=== PATIENT | female | born 1990 | race Caucasian/White ===

== ENCOUNTER 2017-04-03 19:04 | Emergency (ER) | payer SELFPAY ==
[~2017-04-03] VITALS: Ht 157.5 cm; Wt 62.6 kg
[2017-04-03] MEDS ORDERED: ONDANSETRON PF 4 MG/2 ML VIAL. ONE (19:44)
[2017-04-03] MEDS ORDERED: IV NORMAL SALINE 1,000ML 1,000 ML ONE (19:44)
[2017-04-03] MEDS ORDERED: IV NORMAL SALINE 1,000ML 1,000 ML IV ONE (19:45)
[2017-04-03] MEDS ORDERED: ONDANSETRON PF 4 MG/2 ML VIAL. IV ONE (19:45)
[2017-04-03 20:10] LABS: BASO % 0 % (0-3); EOS # 0.1 x10^3/uL (0.0-0.7); EOS % 1 % (0-3); HEMATOCRIT 37.1 % (36.0-47.0); HEMOGLOBIN 12.8 g/dL (12.0-15.5); LYMPH # 2.6 x10^3/uL (1.0-4.8); LYMPH % 31 % (24-48); MEAN CORPUSCULAR HEMOGLOBIN 34 pg (25-35); MEAN CORPUSCULAR HGB CONC 35 g/dL (31-37); MEAN CORPUSCULAR VOLUME 98 fL (79-100); MONO # 1.3 x10^3/uL (0.0-1.1); MONO % 15 % (0-9); NEUT # 4.3 x10^3uL (1.8-7.7); NEUT % 52 % (31-73); PLATELET COUNT 235 x10^3/uL (140-400); RED BLOOD COUNT 3.78 x10^6/uL (3.50-5.40); RED CELL DISTRIBUTION WIDTH 12.9 % (11.5-14.5); WHITE BLOOD COUNT 8.3 x10^3/uL (4.0-11.0)
[2017-04-03 20:19] LABS: ALBUMIN 3.8 g/dL (3.4-5.0); ALBUMIN/GLOBULIN RATIO 1.1 (1.0-1.7); CALCIUM 8.8 mg/dL (8.5-10.1); CREATININE 0.8 mg/dL (0.6-1.0); GFR 87.4; POTASSIUM 3.6 mmol/L (3.5-5.1); TOTAL BILIRUBIN 0.2 mg/dL (0.2-1.0); TOTAL PROTEIN 7.4 g/dL (6.4-8.2)
[2017-04-03 20:20] LABS: COLOR,URINE YELLOW
[2017-04-03 20:21] LABS: BILIRUBIN,URINE NEG (NEG); CLARITY,URINE CLOUDY; GLUCOSE,URINE NEG (NEG); NITRITE,URINE POS (NEG); UROBILINOGEN,URINE 0.2 mg/dL (0.2 mg/dL)
[2017-04-03 20:22] LABS: BACTERIA,URINE MANY /HPF (0-FEW); RBC,URINE OCC /HPF (0-2); SQUAMOUS EPITHELIAL CELL,UR MOD /LPF
[2017-04-03 20:23] LABS: AMORPHOUS SEDIMENT,UR PRESENT /HPF
--- NOTE | 2017-04-03 20:53 | ED.ADGEN ---
Adult General Chief Complaint Chief Complaint n/v x 3 days HPI HPI Patient is a 26yy/o female with n/v x 3-4 days. her boyfriend had same last week and still has sx. she took home test 2 days ago. her last LMP was end of january. it was positve. she is . she is having epigastric pain and RUQ and LUQ pain. no suprapubic pain, no vag bleed or dischage. Review of Systems Review of Systems Constitutional: Denies fever or chills [] Eyes: Denies change in visual acuity, redness, or eye pain [] HENT: Denies nasal congestion or sore throat [] Respiratory: Denies cough or shortness of breath [] Cardiovascular: No additional information not addressed in HPI [] GI:+ abdominal pain, nausea, vomiting, no bloody stools or diarrhea [] : Denies dysuria or hematuria no suprapubic pain Musculoskeletal: Denies back pain or joint pain [] Integument: Denies rash or skin lesions [] Neurologic: Denies headache, focal weakness or sensory changes [] Endocrine: Denies polyuria or polydipsia [] Current Medications Current Medications Current Medications Medications (Trade) Dose Ordered Sig/Jessica Start Time Stop Time Status Last Admin Dose Admin Ondansetron HCl (Zofran) 4 mg STK-MED ONCE 04/03/17 19:44 04/03/17 21:15 DC Sodium Chloride 1,000 ml @ As Directed STK-MED ONCE 04/03/17 19:44 04/03/17 21:15 DC Allergies Allergies Allergies Coded Allergies Type Severity Reaction Last Updated Verified No Known Drug Allergies 04/03/17 No Physical Exam Physical Exam Constitutional: Well developed, well nourished, no acute distress, non-toxic appearance. [] HENT: Normocephalic, atraumatic, bilateral external ears normal, oropharynx moist, no oral exudates, nose normal. [] Eyes: PERRLA, EOMI, conjunctiva normal, no discharge. [] Neck: Normal range of motion, no tenderness, supple, no stridor. [] Cardiovascular:Heart rate regular rhythm, no murmur [] Lungs & Thorax: Bilateral breath sounds clear to auscultation [] Abdomen: Bowel sounds normal, soft, tender epigastric and ruq/luq. no masses, no pulsatile masses. no suprapubic pain Skin: Warm, dry, no erythema, no rash. [] Back: No tenderness, no CVA tenderness. [] Extremities: No tenderness, no cyanosis, no clubbing, ROM intact, no edema. [] Neurologic: Alert and oriented X 3, normal motor function, normal sensory function, no focal deficits noted. [] Psychologic: Affect normal, judgement normal, mood normal. [] Current Patient Data Lab Results Laboratory Tests Test 04/03/17 19:15 04/03/17 19:39 04/03/17 19:50 Urine Collection Type Unknown Urine Color Yellow Urine Clarity Cloudy Urine pH 7.0 Urine Specific [place] 1.025 Urine Protein Trace (NEG-TRACE) Urine Glucose (UA) Neg mg/dL (NEG) Urine Ketones (Stick) Neg mg/dL (NEG) Urine Blood Neg (NEG) Urine Nitrite Pos (NEG) Urine Bilirubin Neg (NEG) Urine Urobilinogen Dipstick 0.2 mg/dL (0.2 mg/dL) Urine Leukocyte Esterase Neg (NEG) Urine RBC Occ /HPF (0-2) Urine WBC 1-4 /HPF (0-4) Urine Squamous Epithelial Cells Mod /LPF Urine Amorphous Sediment Present /HPF Urine Bacteria Many /HPF (0-FEW) POC Urine HCG, Qualitative hcg positive (Negative) White Blood Count 8.3 x10^3/uL (4.0-11.0) Red Blood Count 3.78 x10^6/uL (3.50-5.40) Hemoglobin 12.8 g/dL (12.0-15.5) Hematocrit 37.1 % (36.0-47.0) Mean Corpuscular Volume 98 fL (79-100) Mean Corpuscular Hemoglobin 34 pg (25-35) Mean Corpuscular Hemoglobin Concent 35 g/dL (31-37) Red Cell Distribution Width 12.9 % (11.5-14.5) Platelet Count 235 x10^3/uL (140-400) Neutrophils (%) (Auto) 52 % (31-73) Lymphocytes (%) (Auto) 31 % (24-48) Monocytes (%) (Auto) 15 % (0-9) H Eosinophils (%) (Auto) 1 % (0-3) Basophils (%) (Auto) 0 % (0-3) Neutrophils # (Auto) 4.3 x10^3uL (1.8-7.7) Lymphocytes # (Auto) 2.6 x10^3/uL (1.0-4.8) Monocytes # (Auto) 1.3 x10^3/uL (0.0-1.1) H Eosinophils # (Auto) 0.1 x10^3/uL (0.0-0.7) Basophils # (Auto) 0.0 x10^3/uL (0.0-0.2) Sodium Level 138 mmol/L (136-145) Potassium Level 3.6 mmol/L (3.5-5.1) Chloride Level 103 mmol/L (98-107) Carbon Dioxide Level 28 mmol/L (21-32) Anion Gap 7 (6-14) Blood Urea Nitrogen 11 mg/dL (7-20) Creatinine 0.8 mg/dL (0.6-1.0) Estimated GFR (Cockcroft-Gault) 87.4 BUN/Creatinine Ratio 14 (6-20) Glucose Level 80 mg/dL (70-99) Calcium Level 8.8 mg/dL (8.5-10.1) Total Bilirubin 0.2 mg/dL (0.2-1.0) Aspartate Amino Transferase (AST) 21 U/L (15-37) Alanine Aminotransferase (ALT) 38 U/L (14-59) Alkaline Phosphatase 57 U/L (46-116) Total Protein 7.4 g/dL (6.4-8.2) Albumin 3.8 g/dL (3.4-5.0) Albumin/Globulin Ratio 1.1 (1.0-1.7) EKG EKG [] Radiology/Procedures Radiology/Procedures [] Course & Med Decision Making Course & Med Decision Making Pertinent Labs and Imaging studies reviewed. (See chart for details) pt feels better with zofran and ivf. she some bacteria on urine will start keflex. she will f/u with [facility] packer []she knows to return if vaginal bleeding cramping, fever, vomiting Final Impression Final Impression vomiting, [] Problems: Dragon Disclaimer Dragon Disclaimer This electronic medical record was generated, in whole or in part, using a voice recognition dictation system. Departure Time of Disposition: 20:52 Disposition: 01 HOME, SELF-CARE Condition: IMPROVED Patient Instructions: ABCs of , Nausea and Vomiting, [id number] Additional Instructions: tylenol for pain. benadryl 25mg every 6 hours for cramping and sleep. phenergan for nausea. return if symptoms worsen Prescriptions phenergan MEHRDAD STEVENS MD Apr 03, 2017 20:53
[2017-04-03 21:00] VITALS: BP 110/61
== END 2017-04-03 21:07 | disposition home or self-care (01) ==
LOC: ER 19:04
DX: O21.9 Vomiting of pregnancy, unspecified (principal); R10.13 Epigastric pain; Z3A.01 Less than 8 weeks gestation of pregnancy
CPT/HCPCS: 36415; 80053; 81001; 81025; 85027; 87086; 96361; 96374; 99284; J2405; J7030

== ENCOUNTER 2017-04-11 14:57 | Emergency (ER) | payer OTHER ==
[~2017-04-11] VITALS: Ht 157.5 cm; Wt 62.6 kg
--- NOTE | 2017-04-11 15:27 | PHYS DOC ---
Past History Past Medical History: No Pertinent History Past Surgical History: Other Alcohol Use: Rarely Drug Use: None Adult General Chief Complaint Chief Complaint: VAGINAL BLEEDING [facility] HPI She is a pleasant 26-year-old female 001 at approximately 8 weeks by LMP who presents with vaginal bleeding today. Patient was diagnosed with a 3 weeks after being seen in the emergency department for being seen for intractable nausea and vomiting. Patient denies any abdominal pain, denies any lightheaded or dizziness is just concerned about the amount of bleeding she was exhibiting. She denies any vaginal trauma denies any back pain denies fevers , chills, UTI symptoms, nausea, vomiting, diarrhea at this time. Patient is normally going to see as she did for her first but received no care for this point. Review of Systems Review of Systems Constitutional: Denies fever or chills [] Eyes: Denies change in visual acuity, redness, or eye pain [] HENT: Denies nasal congestion or sore throat [] Respiratory: Denies cough or shortness of breath [] Cardiovascular: No additional information not addressed in HPI [] GI: Denies abdominal pain, nausea, vomiting, bloody stools or diarrhea [] : Denies dysuria or hematuria [] Musculoskeletal: Denies back pain or joint pain [] Integument: Denies rash or skin lesions [] Neurologic: Denies headache, focal weakness or sensory changes [] Endocrine: Denies polyuria or polydipsia [] Allergies Allergies Allergies Coded Allergies Type Severity Reaction Last Updated Verified No Known Drug Allergies 04/03/17 No Physical Exam Physical Exam Signs stable within normal limits of what recorded. Constitutional: Well developed, well nourished, no acute distress, non-toxic appearance. [] HENT: Normocephalic, atraumatic, bilateral external ears normal, oropharynx moist, no oral exudates, nose normal. [] Eyes: PERRLA, EOMI, conjunctiva normal, no discharge. [] Neck: Normal range of motion, no tenderness, supple, no stridor. [] Cardiovascular:Heart rate regular rhythm, no murmur [] Lungs & Thorax: Bilateral breath sounds clear to auscultation [] Abdomen: Bowel sounds normal, soft, no tenderness, no masses, no pulsatile masses as his exam demonstrates no CMT but has a closed os with only slight blood in the vaginal vault. Internal vagina looks normal. No lesions or trauma. Skin: Warm, dry, no erythema, no rash. [] Back: No tenderness, no CVA tenderness. [] Extremities: No tenderness, no cyanosis, no clubbing, ROM intact, no edema. [] Neurologic: Alert and oriented X 3, normal motor function, normal sensory function, no focal deficits noted. [] Psychologic: Affect normal, judgement normal, mood normal. [] Current Patient Data Lab Results Nursery Laboratory Tests 04/11/17 15:37: White Blood Count 8.9, Red Blood Count 3.72, Hemoglobin 12.6, Hematocrit 36.5, Mean Corpuscular Volume 98, Mean Corpuscular Hemoglobin 34, Mean Corpuscular Hemoglobin Concent 35, Red Cell Distribution Width 12.9, Platelet Count 232, Neutrophils (%) (Auto) 60, Lymphocytes (%) (Auto) 26, Monocytes (%) (Auto) 14, Eosinophils (%) (Auto) 0, Basophils (%) (Auto) 0, Neutrophils # (Auto) 5.3, Lymphocytes # (Auto) 2.3, Monocytes # (Auto) 1.2, Eosinophils # (Auto) 0.0, Basophils # (Auto) 0.0, Maternal Serum HCG Beta Subunit 05556, Sodium Level 138 , Potassium Level 4.2, Chloride Level 105, Carbon Dioxide Level 27, Anion Gap 6 , Blood Urea Nitrogen 10, Creatinine 0.7, Estimated GFR (Cockcroft-Gault) 102.0 , Glucose Level 88, Calcium Level 8.9, Total Bilirubin 0.2, Direct Bilirubin 0.1 , Aspartate Amino Transf (AST/SGOT) 24, Alanine Aminotransferase (ALT/SGPT) 40, Alkaline Phosphatase 53, Total Protein 7.3, Albumin 3.8 04/11/17 16:50: Urine Collection Type Unknown, Urine Color Yellow, Urine Clarity Clear, Urine pH 6.0, Urine Specific [place] 1.020, Urine Protein Neg, Urine Glucose (UA) Neg , Urine Ketones (Stick) Neg, Urine Blood Small, Urine Nitrite Neg, Urine Bilirubin Neg, Urine Urobilinogen Dipstick 0.2, Urine Leukocyte Esterase Neg, Urine RBC 3-5, Urine WBC 1-4, Urine Squamous Epithelial Cells Few, Urine Bacteria Many, Urine Mucus Mod EKG EKG [] Radiology/Procedures Radiology/Procedures [] [address] [id number] IMAGING REPORT Signed PATIENT: FORREST CHRISTIANSON ACCOUNT: [id number] : 1990 LOCATION: ER AGE: 26 SEX: F EXAM STATUS: REG ER ORD. PHYSICIAN: XUAN RAMIREZ MD REASON: vaginal bleeding <14 week PROCEDURE: OB <14 WKS Obstetric ultrasound 04/11/2017 at 1614 hours Indication: Vaginal bleeding. LMP end of January. Comparison: None available Technique: Multiple sonographic images of the pelvis were obtained utilizing transabdominal and transvaginal imaging. Grayscale, color Doppler and spectral waveform analysis was utilized. Findings: The uterus measures 10.1 x 5.4 x 5.1 cm. Single gestational sac with a yolk sac and pole are identified. [place]-rump length measures 0.69 cm compatible with gestational age of 6 weeks 4 days. heart tones are measurable at 121 bpm by M mode Doppler. Small subchorionic hemorrhage is noted. Right ovary measures 2.0 x 1.3 x 2.1 cm. Left ovary measures 3.2 x 3.1 x 2.3 cm. Arterial and venous waveform are noted by color Doppler and spectral waveform analysis at the time of imaging. Small volume free fluid is noted within the pelvis. Impression: 1. A single intrauterine is identified with crown-rump length compatible with gestational age of 6 weeks and 4 days. heart tones measure 121 bpm. Small subchorionic hemorrhage is present. If there is persistent clinical concern, follow-up ultrasound and serial beta hCG is recommended. 2. Perfusion is noted to the ovaries bilaterally that time of imaging. DICTATED AND SIGNED BY: LILLY PENN MD DATE: 04/11/17 3133 CC: XUAN RAMIREZ MD; PCP,NO ~ Course & Med Decision Making Course & Med Decision Making Pertinent Labs and Imaging studies reviewed. (See chart for details) she presents with vaginal spotting and bleeding about 8 weeks by LMP. She is having really no crampy abdominal pain but is concerned about the vaginal bleeding with discussion of blood. I'm is now 5 PM patient's CBC is normal, urine test is positive. She is quantitative hCG is greater than 44,000 and ultrasound demonstrates a positive IUP with heart rate of 121. Patient's cervical os is closed. Patient is unfortunately O- and require rhogam. Is now 5:54 PM patient is still waiting for the medication. Turned over to oncoming physician at 6 PM awaiting prophylactic rhogam shot [] Dragon Disclaimer Dragon Disclaimer This chart was dictated in whole or in part using Voice Recognition software in a busy, high-work load, and often noisy Emergency Department environment. It may contain unintended and wholly unrecognized errors or omissions. Departure Departure: Impression: Primary Impression: Threatened Additional Impressions: Encounter for prophylactic administration of RhoGAM Need for rhogam due to Rh negative mother Disposition: HOME, SELF-CARE Condition: IMPROVED Referrals: PCPJUSTIN (PCP) Patient Instructions: Threatened Miscarriage Problem Qualifiers XUAN RAMIREZ MD Apr 11, 2017 15:27
[2017-04-11] MEDS ORDERED: IV NORMAL SALINE 500ML 500 ML IV SCH (15:30)
[2017-04-11] MEDS ORDERED: 0.9 % SODIUM CHLORIDE 10 ML DISP.SYRIN. IV PRN (15:30)
[2017-04-11 15:53] LABS: BASO % 0 % (0-3); EOS % 0 % (0-3); HEMATOCRIT 36.5 % (36.0-47.0); HEMOGLOBIN 12.6 g/dL (12.0-15.5); LYMPH # 2.3 x10^3/uL (1.0-4.8); LYMPH % 26 % (24-48); MEAN CORPUSCULAR HEMOGLOBIN 34 pg (25-35); MEAN CORPUSCULAR HGB CONC 35 g/dL (31-37); MEAN CORPUSCULAR VOLUME 98 fL (79-100); MONO # 1.2 x10^3/uL (0.0-1.1); MONO % 14 % (0-9); NEUT # 5.3 x10^3uL (1.8-7.7); NEUT % 60 % (31-73); PLATELET COUNT 232 x10^3/uL (140-400); RED BLOOD COUNT 3.72 x10^6/uL (3.50-5.40); RED CELL DISTRIBUTION WIDTH 12.9 % (11.5-14.5); WHITE BLOOD COUNT 8.9 x10^3/uL (4.0-11.0)
[2017-04-11 16:07] LABS: ALBUMIN 3.8 g/dL (3.4-5.0); CALCIUM 8.9 mg/dL (8.5-10.1); CREATININE 0.7 mg/dL (0.6-1.0); DIRECT BILIRUBIN 0.1 mg/dL (0.0-0.2); POTASSIUM 4.2 mmol/L (3.5-5.1); TOTAL BILIRUBIN 0.2 mg/dL (0.2-1.0); TOTAL PROTEIN 7.3 g/dL (6.4-8.2)
--- NOTE | 2017-04-11 16:59 | RAD ---
Obstetric ultrasound 04/11/2017 at 1614 hours Indication: Vaginal bleeding. LMP end of January. Comparison: None available Technique: Multiple sonographic images of the pelvis were obtained utilizing transabdominal and transvaginal imaging. Grayscale, color Doppler and spectral waveform analysis was utilized. Findings: The uterus measures 10.1 x 5.4 x 5.1 cm. Single gestational sac with a yolk sac and pole are identified. [place]-rump length measures 0.69 cm compatible with gestational age of 6 weeks 4 days. heart tones are measurable at 121 bpm by M mode Doppler. Small subchorionic hemorrhage is noted. Right ovary measures 2.0 x 1.3 x 2.1 cm. Left ovary measures 3.2 x 3.1 x 2.3 cm. Arterial and venous waveform are noted by color Doppler and spectral waveform analysis at the time of imaging. Small volume free fluid is noted within the pelvis. Impression: 1. A single intrauterine is identified with crown-rump length compatible with gestational age of 6 weeks and 4 days. heart tones measure 121 bpm. Small subchorionic hemorrhage is present. If there is persistent clinical concern, follow-up ultrasound and serial beta hCG is recommended. 2. Perfusion is noted to the ovaries bilaterally that time of imaging.
[2017-04-11 17:41] LABS: BACTERIA,URINE MANY /HPF (0-FEW); BILIRUBIN,URINE NEG (NEG); CLARITY,URINE CLEAR; COLOR,URINE YELLOW; GLUCOSE,URINE NEG (NEG); NITRITE,URINE NEG (NEG); SQUAMOUS EPITHELIAL CELL,UR FEW /LPF; UROBILINOGEN,URINE 0.2 mg/dL (0.2 mg/dL)
[2017-04-11] MEDS ORDERED: ACETAMINOPHEN 325 MG TABLET PO ONE (18:00)
[2017-04-11 18:30] VITALS: BP 106/62
== END 2017-04-11 18:50 | disposition home or self-care (01) ==
LOC: ER 14:57
DX: Z23 Encounter for immunization (principal); O20.0 Threatened abortion; Z3A.01 Less than 8 weeks gestation of pregnancy
CPT/HCPCS: 36415; 76801; 80048; 80076; 81001; 84702; 85025; 86850; 86900; 86901; 87086; 96360; 99285; J2791; J7040; 87186

== ENCOUNTER 2017-10-20 08:52 | Emergency (ER) | payer OTHER ==
[~2017-10-20] VITALS: Ht 157.5 cm; Wt 82.1 kg
--- NOTE | 2017-10-20 09:24 | PHYS DOC ---
Past History Past Medical History: No Pertinent History Past Surgical History: No Surgical History Alcohol Use: None Drug Use: None Adult General Chief Complaint Chief Complaint: HAND PROBLEM HPI HPI 27-year-old right-handed female patient at 34 weeks of gestation states she woke up 2 days ago with pain in left middle finger that getting worse today. Patient denies injury, history of the same problem, focal neuro deficit, fever and chills. Patient states she is not able to bend her finger like other fingers because of the pain and the pain extending to second and fourth fingers. She denies vaginal bleeding or abdominal contraction. Review of Systems Review of Systems Constitutional: Denies fever or chills [] Eyes: Denies change in visual acuity, redness, or eye pain [] HENT: Denies nasal congestion or sore throat [] Respiratory: Denies cough or shortness of breath [] Cardiovascular: No additional information not addressed in HPI [] GI: Denies abdominal pain, nausea, vomiting, bloody stools or diarrhea [] : Denies dysuria or hematuria [] Musculoskeletal: Reports joint pain Integument: Denies rash or skin lesions [] Neurologic: Denies headache, focal weakness or sensory changes [] Endocrine: Denies polyuria or polydipsia [] All other systems were reviewed and found to be within normal limits, except as documented in this note. Allergies Allergies Allergies Coded Allergies Type Severity Reaction Last Updated Verified No Known Drug Allergies 04/03/17 No Physical Exam Physical Exam Constitutional: Well developed, well nourished, mild distress, non-toxic appearance. [] HENT: Normocephalic, atraumatic Eyes: PERRLA, EOMI, conjunctiva normal, no discharge. [] Neck: Normal range of motion, no tenderness, supple, no stridor. [] Cardiovascular:Heart rate regular rhythm, no murmur [] Lungs & Thorax: Bilateral breath sounds clear to auscultation [] Abdomen: Gravid abdomen Skin: Warm, dry, no erythema, no rash. [] Extremities: Left middle finger without erythema or tenderness, normal range of motion but painful, trace edema of all fingers, no focal neuro deficit Neurologic: Alert and oriented X 3, normal motor function, normal sensory function, no focal deficits noted. [] Psychologic: Affect normal, judgement normal, mood normal. [] Current Patient Data Vital Signs Vital Signs Date Time Temp Pulse Resp B/P (MAP) Pulse Ox O2 Delivery O2 Flow Rate FiO2 10/20/17 08:52 98.1 104 18 99 Room Air EKG EKG [] Radiology/Procedures Radiology/Procedures [] Course & Med Decision Making Course & Med Decision Making Evaluation of patient in ER showed 27-year-old female patient patient had marked edema of all of the fingers without sign of infection or gout. Bro tape splint applied by [employer] and patient instructed to take Tylenol and apply ice on the affected area.[] Dragon Disclaimer Dragon Disclaimer This electronic medical record was generated, in whole or in part, using a voice recognition dictation system. Departure Departure: Impression: Primary Impression: Inflammation of joint of finger of left hand Additional Impression: Currently Disposition: 01 HOME, SELF-CARE (At 0922) Condition: STABLE Referrals: PCP,NO (PCP) Patient Instructions: Joint Sprain Additional Instructions: Apply ice on the affected area Follow-up with your primary care physician in 3-5 days Return to ER if not getting better Problem Qualifiers AMBER CARSON MD Oct 20, 2017 09:24
[2017-10-20 09:40] VITALS: BP 126/66
== END 2017-10-20 09:40 | disposition home or self-care (01) ==
LOC: ER 08:52
DX: O26.893 Other specified pregnancy related conditions, third trimester (principal); R22.32 Localized swelling, mass and lump, left upper limb; M79.645 Pain in left finger(s); Z3A.34 34 weeks gestation of pregnancy
CPT/HCPCS: 29130; 99283

== ENCOUNTER 2018-01-02 00:02 | Emergency (ER) | payer OTHER ==
[~2018-01-02] VITALS: Ht 157.5 cm; Wt 78.1 kg
[2018-01-02] MEDS ORDERED: ONDANSETRON ODT 4 MG TAB.RAPDIS ONE (00:15)
[2018-01-02] MEDS ORDERED: ONDANSETRON PF 4 MG/2 ML VIAL. IV ONE (00:30)
[2018-01-02] MEDS ORDERED: IV NORMAL SALINE 1,000ML 1,000 ML IV SCH (00:30)
--- NOTE | 2018-01-02 00:43 | PHYS DOC ---
Past History Past Medical History: No Pertinent History Past Surgical History: No Surgical History Alcohol Use: None Drug Use: None Adult General Chief Complaint Chief Complaint: CHEST PAIN HPI HPI Patient is a 27 year old female who presents with complaint of epigastric and lower substernal chest pain. Patient states her symptoms started suddenly and within 15 minutes of arrival to the emergency department. The patient states that the pain is sharp and rates it as 10 out of 10. Patient states that she is having associated nausea and vomiting which she attributes to her pain. Patient denies any history of similar symptoms. Patient has not taken any medications for her symptoms. Patient denies any known exacerbating or alleviating factors. Patient states that she recently delivered a baby 5 weeks ago by spontaneous vaginal delivery. Patient did not have any known complications associated with delivery. Patient has not had any fevers and denies any diarrhea or change in stools. Review of Systems Review of Systems Constitutional: Denies fever or chills [] Eyes: Denies change in visual acuity, redness, or eye pain [] HENT: Denies nasal congestion or sore throat [] Respiratory: Shortness of breath[] Cardiovascular: Chest pain, denies edema[] GI: Abdominal pain, nausea, vomiting, denies bloody stools or diarrhea[] : Denies dysuria or hematuria [] Musculoskeletal: Denies back pain or joint pain [] Integument: Denies rash or skin lesions [] Neurologic: Denies headache, focal weakness or sensory changes [] All other systems were reviewed and found to be within normal limits, except as documented in this note. Current Medications Current Medications Current Medications Medications (Trade) Dose Ordered Sig/[facility] Start Time Stop Time Status Last Admin Dose Admin Fentanyl Citrate (Fentanyl 2ml Vial) 100 mcg STK-MED ONCE 01/02/18 00:36 01/02/18 00:37 DC Ondansetron HCl (Zofran Odt) 4 mg STK-MED ONCE 01/02/18 00:15 01/02/18 00:16 DC Ondansetron HCl (Zofran) 4 mg 1X ONCE 01/02/18 00:30 01/02/18 00:37 DC Sodium Chloride 1,000 ml @ 1,000 mls/hr Q1H 01/02/18 00:30 01/02/18 01:29 Allergies Allergies Allergies Coded Allergies Type Severity Reaction Last Updated Verified No Known Drug Allergies 04/03/17 No Physical Exam Physical Exam Constitutional: Alert, afebrile, appears in mild to moderate distress. [] HENT: Normocephalic, atraumatic, bilateral external ears normal, oropharynx moist, no oral exudates, nose normal. [] Eyes: PERRLA, EOMI, conjunctiva normal, no discharge. [] Neck: Normal range of motion, no tenderness, supple, no stridor. [] Cardiovascular:Heart rate regular rhythm, no murmur [] Lungs & Thorax: Bilateral breath sounds clear to auscultation [] Abdomen: Bowel sounds normal, soft, epigastric tenderness to palpation, negative Benitez's sign, minimal guarding, no rebound tenderness no masses, no pulsatile masses. [] Skin: Warm, dry, no erythema, no rash. [] Back: No tenderness, no CVA tenderness. [] Extremities: No tenderness, no cyanosis, no clubbing, ROM intact, no edema. [] Neurologic: Alert and oriented X 3, normal motor function, normal sensory function, no focal deficits noted. [] Current Patient Data Vital Signs Vital signs were reviewed and are stable Lab Results Laboratory Tests Test 01/01/18 23:51 01/02/18 00:28 01/02/18 00:32 Bedside Urine HCG, Qualitative hcg negative White Blood Count 8.2 x10^3/uL Red Blood Count 4.15 x10^6/uL Hemoglobin 13.9 g/dL Hematocrit 40.4 % Mean Corpuscular Volume 97 fL Mean Corpuscular Hemoglobin 33 pg Mean Corpuscular Hemoglobin Concent 34 g/dL Red Cell Distribution Width 13.1 % Platelet Count 253 x10^3/uL Neutrophils (%) (Auto) 43 % Lymphocytes (%) (Auto) 44 % Monocytes (%) (Auto) 13 % Eosinophils (%) (Auto) 1 % Basophils (%) (Auto) 0 % Neutrophils # (Auto) 3.5 x10^3uL Lymphocytes # (Auto) 3.6 x10^3/uL Monocytes # (Auto) 1.1 x10^3/uL Eosinophils # (Auto) 0.0 x10^3/uL Basophils # (Auto) 0.0 x10^3/uL D-Dimer (Angella) 0.28 mg/L Sodium Level 141 mmol/L Potassium Level 3.5 mmol/L Chloride Level 105 mmol/L Carbon Dioxide Level 29 mmol/L Anion Gap 7 Blood Urea Nitrogen 9 mg/dL Creatinine 0.8 mg/dL Estimated GFR (Cockcroft-Gault) 86.7 BUN/Creatinine Ratio 11 Glucose Level 91 mg/dL Calcium Level 8.8 mg/dL Magnesium Level 1.6 mg/dL Total Bilirubin 0.2 mg/dL Aspartate Amino Transf (AST/SGOT) 18 U/L Alanine Aminotransferase (ALT/SGPT) 25 U/L Alkaline Phosphatase 83 U/L Creatine Kinase 72 U/L Creatine Kinase MB (Mass) < 0.5 ng/mL Creatine Kinase MB Relative Index 0.7 % Troponin I Quantitative < 0.017 ng/mL Total Protein 7.4 g/dL Albumin 3.8 g/dL Albumin/Globulin Ratio 1.1 Lipase 189 U/L Urine Collection Type Unknown Urine Color Yellow Urine Clarity Clear Urine pH 5.5 Urine Specific [place] 1.025 Urine Protein Neg Urine Glucose (UA) Neg mg/dL Urine Ketones (Stick) Neg mg/dL Urine Blood Neg Urine Nitrite Neg Urine Bilirubin Neg Urine Urobilinogen Dipstick 1 mg/dL Urine Leukocyte Esterase Neg Urine RBC 0 /HPF Urine WBC Occ /HPF Urine Squamous Epithelial Cells Occ /LPF Urine Bacteria 0 /HPF Urine Opiates Screen Neg Urine Methadone Screen Neg Urine Barbiturates Neg Urine Phencyclidine Screen Neg Urine Amphetamine/Methamphetamine Neg Urine Benzodiazepines Screen Neg Urine Cocaine Screen Neg Urine Cannabinoids Screen Neg Urine Ethyl Alcohol Neg Current Medications Medications (Trade) Dose Ordered Sig/Jessica Route PRN Reason Start Time Stop Time Status Last Admin Dose Admin Ondansetron HCl (Zofran Odt) 4 mg STK-MED ONCE .ROUTE 01/02/18 00:15 01/02/18 00:16 DC Sodium Chloride 1,000 ml @ 1,000 mls/hr Q1H IV 01/02/18 00:30 01/02/18 01:29 DC 01/02/18 00:39 Ondansetron HCl (Zofran) 4 mg 1X ONCE IV 01/02/18 00:30 01/02/18 00:37 DC Fentanyl Citrate (Fentanyl 2ml Vial) 50 mcg 1X ONCE IV 01/02/18 00:30 01/02/18 00:37 DC 01/02/18 00:39 Fentanyl Citrate (Fentanyl 2ml Vial) 100 mcg STK-MED ONCE .ROUTE 01/02/18 00:36 01/02/18 00:37 DC Ondansetron HCl (Zofran Odt) 4 mg 1X ONCE PO 01/02/18 01:15 01/02/18 01:16 DC 01/02/18 01:07 EKG EKG Interpreted by me: Heart rate 67, sinus rhythm, leftward axis, incomplete right bundle branch block, no acute ST/T-wave abnormalities present[] Radiology/Procedures Radiology/Procedures One view AP chest x-ray interpreted by me: No infiltrate, no effusions, normal cardiac silhouette[] Course & Med Decision Making Course & Med Decision Making Pertinent Labs and Imaging studies reviewed. (See chart for details) The patient was given IV fluids, Zofran, and fentanyl for symptoms. On reevaluation, patient states her symptoms have improved significantly. Patient states she does have residual pain in the epigastric and left upper quadrant but states it is not nearly as bad as it was when it began. The patient's blood work and imaging revealed no evidence of acute hepatitis, pancreatitis, biliary obstruction or gallbladder disease, pulmonary embolism, acute pulmonary pathology such as pneumonia, bowel perforation, or cardiac pathology, all of which were considered and the patient's differential diagnosis. Given that the patient's symptoms appear concentrated to the left upper quadrant and epigastrium, this is suggestive against gallbladder pathology. After speaking with the patient regarding options of further imaging with CT scan versus symptomatic control and outpatient therapy, the patient states that she would rather continue as an outpatient with symptomatic control. The patient was prescribed naproxen, [place], and Zofran for continued outpatient therapy. Advise follow-up in one to 2 days a primary doctor for further evaluation and recommended return to the emergency department immediately for any worsening symptoms. Patient voiced understanding and in agreement with treatment plan. Dragon Disclaimer Dragon Disclaimer This electronic medical record was generated, in whole or in part, using a voice recognition dictation system. Departure Departure: Impression: Primary Impression: Abdominal pain Disposition: HOME, SELF-CARE Condition: IMPROVED Referrals: PCPJUSTIN (PCP) Patient Instructions: Abdominal Pain Additional Instructions: Your lab testing and imaging today did not show the exact cause of your pain today. You will be prescribed medication to try to help with your symptoms. It is recommended that you follow-up in the next 1-2 days with her primary doctor for reevaluation. If your symptoms worsen or do not respond to your home medication, it is recommended that you return to the emergency department for reevaluation. Scripts Ondansetron (ZOFRAN ODT) 4 Mg Tab.rapdis 1 TAB SL Q8HRS Y for NAUSEA/VOMITING, #15 TAB Prov: JOHN GARCIA MD 01/02/18 Hydrocodone Bit/Acetaminophen (NORCO 5-325 TABLET) 1 Each Tablet 1-2 TAB PO Q4-6HRS Y for PAIN, #20 TAB Prov: JOHN GARCIA MD 01/02/18 Naproxen (NAPROXEN) 500 Mg Tablet 1 TAB PO BID, #20 TAB 0 Refills Prov: JOHN GARCIA MD 01/02/18 Problem Qualifiers Primary Impression: Abdominal pain Abdominal location: epigastric Qualified Codes: R10.13 - Epigastric pain JOHN GARCIA MD January 02, 2018 00:43
[2018-01-02 00:53] LABS: BASO % 0 % (0-3); EOS % 1 % (0-3); HEMATOCRIT 40.4 % (36.0-47.0); HEMOGLOBIN 13.9 g/dL (12.0-15.5); LYMPH # 3.6 x10^3/uL (1.0-4.8); LYMPH % 44 % (24-48); MEAN CORPUSCULAR HEMOGLOBIN 33 pg (25-35); MEAN CORPUSCULAR HGB CONC 34 g/dL (31-37); MEAN CORPUSCULAR VOLUME 97 fL (79-100); MONO # 1.1 x10^3/uL (0.0-1.1); MONO % 13 % (0-9); NEUT # 3.5 x10^3uL (1.8-7.7); NEUT % 43 % (31-73); PLATELET COUNT 253 x10^3/uL (140-400); RED BLOOD COUNT 4.15 x10^6/uL (3.50-5.40); RED CELL DISTRIBUTION WIDTH 13.1 % (11.5-14.5); WHITE BLOOD COUNT 8.2 x10^3/uL (4.0-11.0)
[2018-01-02 01:03] LABS: BACTERIA,URINE 0 /HPF (0-FEW); BILIRUBIN,URINE NEG (NEG); CLARITY,URINE CLEAR; COLOR,URINE YELLOW; GLUCOSE,URINE NEG (NEG); NITRITE,URINE NEG (NEG); RBC,URINE 0 /HPF (0-2); SQUAMOUS EPITHELIAL CELL,UR OCC /LPF; UROBILINOGEN,URINE 1 mg/dL (0.2 mg/dL); WBC,URINE OCC /HPF (0-4)
[2018-01-02 01:04] LABS: BARBITURATES NEG (NEG); BENZODIAZEPINES NEG (NEG); CANNABINOIDS NEG (NEG); COCAINE NEG (NEG); METHADONE NEG (NEG); OPIATES NEG (NEG); PHENCYCLIDINE NEG (NEG)
[2018-01-02 01:06] LABS: AMPHETAMINE/METHAMPHETAMINE NEG (NEG)
[2018-01-02 01:15] LABS: ALBUMIN 3.8 g/dL (3.4-5.0); ALBUMIN/GLOBULIN RATIO 1.1 (1.0-1.7); ALK PHOS 83 U/L (46-116); ALT (SGPT) 25 U/L (14-59); ANION GAP 7 (6-14); AST (SGOT) 18 U/L (15-37); BLOOD UREA NITROGEN 9 mg/dL (7-20); BUN/CREATININE RATIO 11 (6-20); CALCIUM 8.8 mg/dL (8.5-10.1); CARBON DIOXIDE 29 mmol/L (21-32); CHLORIDE 105 mmol/L (98-107); CREATININE 0.8 mg/dL (0.6-1.0); GFR 86.7; GLUCOSE 91 mg/dL (70-99); LIPASE 189 U/L (73-393); MAGNESIUM 1.6 mg/dL (1.8-2.4); POTASSIUM 3.5 mmol/L (3.5-5.1); SODIUM 141 mmol/L (136-145); TOTAL BILIRUBIN 0.2 mg/dL (0.2-1.0); TOTAL PROTEIN 7.4 g/dL (6.4-8.2)
[2018-01-02] MEDS ORDERED: ONDANSETRON ODT 4 MG TAB.RAPDIS PO ONE (01:15)
--- NOTE | 2018-01-02 01:41 | EKG ---
[address] [address] Test Date: 2018-01-02 Test Time: 00:08:01 Pat Name: FORREST CHRISTIANSON Department: Room: Gender: F Field Installer: : 1990 Requested By: JOHN GARCIA Order Number: [id number] Reading MD: Ar Rubio MD Measurements Intervals [place] Rate: 67 P: 0 MT: 188 QRS: -2 QRSD: 90 T: 24 QT: 368 QTc: 391 Interpretive Statements SINUS RHYTHM Electronically Signed On 01-03-2018 12:25:06 CDT by Ar Rubio MD
[2018-01-02] MEDS ORDERED: HYDR-971 PO (02:00)
[2018-01-02] MEDS ORDERED: NAPR-514 PO (02:00)
[2018-01-02] MEDS ORDERED: ONDA4TAB10 SL (02:00)
[2018-01-02 02:05] VITALS: BP 118/76
--- NOTE | 2018-01-02 08:28 | RAD ---
PORTABLE CHEST 1V Clinical indications: chest pain, shortness of breath, vomiting COMPARISON: None available. Findings: No acute lung infiltrate or pleural effusion or pulmonary edema or lung mass or pneumothorax is seen. The heart size, pulmonary vasculature, mediastinum and both nereyda are unremarkable. Impression: No acute radiographic abnormality is seen. Electronically signed by: Carlos Perales MD (01/02/2018 8:25 AM) [id number]
== END 2018-01-02 02:11 | disposition home or self-care (01) ==
LOC: ER 00:02
DX: O90.89 Other complications of the puerperium, not elsewhere classified (principal); R10.13 Epigastric pain; R11.2 Nausea with vomiting, unspecified; R07.2 Precordial pain
CPT/HCPCS: 36415; 71045; 80053; 80307; 81001; 81025; 82553; 83690; 83735; 84484; 85025; 85379; 93005; 96361; 96374; 99285; J3010; Q0162; G0479; J7030

== ENCOUNTER 2018-01-02 13:21 | Emergency (ER) | payer OTHER ==
[~2018-01-02 13:21] MED LIST: HYDR-971 PO; NAPR-514 PO; ONDA4TAB10 SL
[2018-01-02 13:25] VITALS: BP 122/70
[2018-01-02] MEDS ORDERED: KETOROLAC 30 MG/ML VIAL. ONE (14:17)
[2018-01-02] MEDS ORDERED: ONDANSETRON ODT 4 MG TAB.RAPDIS ONE (14:27)
[2018-01-02] MEDS ORDERED: IOHEXOL 300 MG/ML 75 ML VIAL. ONE (14:30)
--- NOTE | 2018-01-02 15:43 | PHYS DOC ---
Past History Past Medical History: No Pertinent History Past Surgical History: Other Alcohol Use: Rarely Drug Use: None Adult General Chief Complaint Chief Complaint: Abdominal pain [facility] HPI Time seen by me 1355 27 y/o female patient c/o sudden onset of LUQ pain since yesterday with radiation to her left flank as a sharp pain with SOB that getting worse with movement. Patient was seen in this ER last night with unremarkable labs and CXR but c/o increasing pain and feeling dizzy. Patient had normal vaginal delivery 5 weeks ago. She denies recent injury to her back or abdomen and chest. Review of Systems Review of Systems Constitutional: Denies fever or chills [] Eyes: Denies change in visual acuity, redness, or eye pain [] HENT: Denies nasal congestion or sore throat [] Respiratory: Denies cough or shortness of breath [] Cardiovascular: No additional information not addressed in HPI [] GI: Reports abdominal pain, nausea, vomiting,denies bloody stools or diarrhea [] : Denies dysuria or hematuria [] Musculoskeletal: Denies back pain or joint pain [] Integument: Denies rash or skin lesions [] Neurologic: Denies headache, focal weakness or sensory changes [] Endocrine: Denies polyuria or polydipsia [] All other systems were reviewed and found to be within normal limits, except as documented in this note. Current Medications Current Medications Current Medications Medications (Trade) Dose Ordered Sig/Jessica Start Time Stop Time Status Last Admin Dose Admin Fentanyl Citrate (Fentanyl 2ml Vial) 100 mcg STK-MED ONCE 01/02/18 14:58 01/02/18 15:30 DC Iohexol (Omnipaque 300 Mg/ml) 75 ml STK-MED ONCE 01/02/18 14:30 01/02/18 15:30 DC Ketorolac Tromethamine (Toradol) 30 mg STK-MED ONCE 01/02/18 14:17 01/02/18 15:30 DC Ondansetron HCl (Zofran Odt) 4 mg STK-MED ONCE 01/02/18 14:27 01/02/18 15:30 DC Allergies Allergies Allergies Coded Allergies Type Severity Reaction Last Updated Verified No Known Drug Allergies 04/03/17 No Physical Exam Physical Exam Constitutional: Well developed, well nourished, moderate distress, non-toxic appearance. [] HENT: Normocephalic, atraumatic Eyes: PERRLA, EOMI, conjunctiva normal, no discharge. [] Neck: Normal range of motion, no tenderness, supple, no stridor. [] Cardiovascular:Heart rate regular rhythm, no murmur [] Lungs & Thorax: Bilateral breath sounds clear to auscultation [] Abdomen: Bowel sounds normal, soft, tenderness and guarding of LUQ, no masses, no pulsatile masses. [] Skin: Warm, dry, no erythema, no rash. [] Back: No tenderness, no CVA tenderness. [] Extremities: No tenderness, no cyanosis, no clubbing, ROM intact, no edema. [] Neurologic: Alert and oriented X 3, normal motor function, normal sensory function, no focal deficits noted. [] Psychologic: Affect normal, judgement normal, mood normal. [] EKG EKG [] Radiology/Procedures Radiology/Procedures [ [address] [address] IMAGING REPORT Signed PATIENT: FORREST CHRISTIANSON ACCOUNT: [id number] : 1990 LOCATION: ER AGE: 27 SEX: F EXAM STATUS: REG ER ORD. PHYSICIAN: AMBER CARSON MD REASON: ABD PAIN PROCEDURE: CT ABD PELV W/ IV CONTRST ONLY EXAM: Abdomen and pelvis CT with intravenous contrast. HISTORY: Pain. TECHNIQUE: Computed tomographic images of the abdomen and pelvis were obtained following the administration of 75 cc Omnipaque 300 intravenous contrast. Multiplanar reformatting was performed. *One or more of the following individualized dose reduction techniques were utilized for this examination: 1. Automated exposure control. 2. Adjustment of the mA and/or kV according to patient size. 3. Use of iterative reconstruction technique. COMPARISON: None. FINDINGS: Evaluation of the lower thorax demonstrates minimal posterior dependent atelectasis. There is no infiltrate or pleural effusion. The heart is normal in size. The liver is upper normal in size. No focal hepatic lesion is seen. The gallbladder is contracted, with associated gallbladder wall thickening. This is likely due to the postprandial status of the patient, as evidenced by a distended stomach. The adrenal glands are unremarkable. There are few tiny splenules adjacent to an otherwise unremarkable spleen. There is a heterogeneous enhancing lesion within the upper pole of the left kidney, measuring 2.3 cm. There is mild right hydronephrosis and hydroureter. No obstructing stone is seen on this contrast-enhanced exam. The urinary bladder is unremarkable. There is no appendicitis. There is no bowel obstruction. The uterus is prominent in size. There may be a small fibroid within the left uterine fundus. There is a small amount of pelvic free fluid. There is a peripherally enhancing lesion along the posterior left uterine segment measuring 1.8 cm, possibly an involuting left ovarian cyst or exophytic fibroid. No pathologically enlarged lymph node is seen. There is no suspicious osseous lesion. IMPRESSION: 1. Mild right hydronephrosis and hydroureter. This appears to extend to the pelvic inlet and a prominent uterine fundus. No clear obstructing stone is seen. Correlate with urinalysis to exclude ascending urinary tract infection or recent renal stone passage. 2. 2.3 cm heterogeneously enhancing lesion within the upper pole of the left kidney, concerning for a renal cell neoplasm. This can be further assessed with a renal sonogram or renal protocol CT or MRI. 3. Contracted gallbladder with wall thickening. This can be due to the postprandial status of patient. 4. 1.8 cm peripherally enhancing lesion along the left aspect of the lower uterine segment, possibly due to an adjacent involuting left ovarian cyst or exophytic uterine fibroid. There is also a suspected small fibroid within the superior uterine fundus. 5. Small amount of pelvic free fluid. This can be physiologic in premenopausal females. Electronically signed by: Sangita Ornelas MD (01/02/2018 4:37 PM) [facility] DICTATED AND SIGNED BY: SANGITA ORNELAS MD DATE: 01/02/18 0349 CC: AMBER CARSON MD; PCP,NO ~ ] Course & Med Decision Making Course & Med Decision Making Pertinent Labs and Imaging studies reviewed. (See chart for details) []Evaluation of patient in ER showed 27-year-old female patient with complaining of left flank and left upper quadrant pain since yesterday as a severe pain. Patient had Toradol and fentanyl and felt better in ER. CT of abdomen and pelvis showed 2.3 cm left kidney with concern for malignancy. Dr. Elmore on-call urologist informed at 1708 and recommended to obtain ultrasound of renal system and follow up with his office next Sunday. Ultrasound is pending. Patient care transferred to Dr. Rowley at 1800. Jefferson Disclaimer Jefferson Disclaimer This electronic medical record was generated, in whole or in part, using a voice recognition dictation system. Departure Departure: Impression: Primary Impression: Left flank pain Additional Impression: Left renal mass Referrals: PCP,NO (PCP) Problem Qualifiers AMBER CARSON MD January 02, 2018 15:43
[2018-01-02 16:08] LABS: HEMATOCRIT 36.8 % (36.0-47.0); HEMOGLOBIN 12.6 g/dL (12.0-15.5); MEAN CORPUSCULAR HEMOGLOBIN 34 pg (25-35); MEAN CORPUSCULAR VOLUME 99 fL (79-100); RED BLOOD COUNT 3.74 x10^6/uL (3.50-5.40); WHITE BLOOD COUNT 5.5 x10^3/uL (4.0-11.0)
[2018-01-02 16:09] LABS: BASO % 0 % (0-3); EOS % 1 % (0-3); LYMPH % 45 % (24-48); MEAN CORPUSCULAR HGB CONC 34 g/dL (31-37); MONO % 15 % (0-9); NEUT % 39 % (31-73); PLATELET COUNT 217 x10^3/uL (140-400); RED CELL DISTRIBUTION WIDTH 13.1 % (11.5-14.5)
[2018-01-02 16:10] LABS: LYMPH # 2.5 x10^3/uL (1.0-4.8); MONO # 0.8 x10^3/uL (0.0-1.1); NEUT # 2.1 x10^3uL (1.8-7.7)
--- NOTE | 2018-01-02 16:40 | RAD ---
EXAM: Abdomen and pelvis CT with intravenous contrast. HISTORY: Pain. TECHNIQUE: Computed tomographic images of the abdomen and pelvis were obtained following the administration of 75 cc Omnipaque 300 intravenous contrast. Multiplanar reformatting was performed. *One or more of the following individualized dose reduction techniques were utilized for this examination: 1. Automated exposure control. 2. Adjustment of the mA and/or kV according to patient size. 3. Use of iterative reconstruction technique. COMPARISON: None. FINDINGS: Evaluation of the lower thorax demonstrates minimal posterior dependent atelectasis. There is no infiltrate or pleural effusion. The heart is normal in size. The liver is upper normal in size. No focal hepatic lesion is seen. The gallbladder is contracted, with associated gallbladder wall thickening. This is likely due to the postprandial status of the patient, as evidenced by a distended stomach. The adrenal glands are unremarkable. There are few tiny splenules adjacent to an otherwise unremarkable spleen. There is a heterogeneous enhancing lesion within the upper pole of the left kidney, measuring 2.3 cm. There is mild right hydronephrosis and hydroureter. No obstructing stone is seen on this contrast-enhanced exam. The urinary bladder is unremarkable. There is no appendicitis. There is no bowel obstruction. The uterus is prominent in size. There may be a small fibroid within the left uterine fundus. There is a small amount of pelvic free fluid. There is a peripherally enhancing lesion along the posterior left uterine segment measuring 1.8 cm, possibly an involuting left ovarian cyst or exophytic fibroid. No pathologically enlarged lymph node is seen. There is no suspicious osseous lesion. IMPRESSION: 1. Mild right hydronephrosis and hydroureter. This appears to extend to the pelvic inlet and a prominent uterine fundus. No clear obstructing stone is seen. Correlate with urinalysis to exclude ascending urinary tract infection or recent renal stone passage. 2. 2.3 cm heterogeneously enhancing lesion within the upper pole of the left kidney, concerning for a renal cell neoplasm. This can be further assessed with a renal sonogram or renal protocol CT or MRI. 3. Contracted gallbladder with wall thickening. This can be due to the postprandial status of patient. 4. 1.8 cm peripherally enhancing lesion along the left aspect of the lower uterine segment, possibly due to an adjacent involuting left ovarian cyst or exophytic uterine fibroid. There is also a suspected small fibroid within the superior uterine fundus. 5. Small amount of pelvic free fluid. This can be physiologic in premenopausal females. Electronically signed by: Sangita Tucker MD (01/02/2018 4:37 PM) [facility]
--- NOTE | 2018-01-02 17:59 | RAD ---
RENAL COMPLETE BILATERAL History: Abnormal CT, abdominal pain and vomiting Comparison: CT earlier the same day Findings: Multiple sonographic images of the kidneys and urinary bladder are submitted. There is solid-appearing mass of the superior left kidney about 3.3 x 2.7 x 2.3 cm in size with internal vascularity on color Doppler imaging. There is no significant hydronephrosis of either kidney. Left kidney measured 12.2 x 5.5 x 4.8 cm. The right kidney measured 11.6 x 5.6 x 4.4 cm. Urinary bladder is not well distended, ureteral jets not seen during exam. Impression: 1. There is a solid appearing superior left renal mass, renal cell carcinoma possible although other mass such as oncocytoma difficult to discriminate by imaging. 2. There is no significant hydronephrosis. Electronically signed by: Eric Thomas MD (01/02/2018 5:57 PM) [facility]
[2018-01-02] MEDS ORDERED: HYDROcodone/APAP 5/325MG 1 TAB TABLET PO ONE (19:30)
[2018-01-02] MEDS ORDERED: HYDROcodone/APAP 5/325MG 1 TAB TABLET ONE (19:31)
--- NOTE | 2018-01-03 00:41 | PHYS DOC ---
Past History Past Medical History: No Pertinent History Past Surgical History: Other Alcohol Use: Rarely Drug Use: None Adult General Chief Complaint Chief Complaint: BACK PAIN OR INJURY HPI HPI 27-year-old female presents of left upper quadrant pain. I received this patient at sign out from my colleague. Reported history she had left flank pain that started yesterday and some mild shortness of breath. These are made worse by movement. She was seen in the ED yesterday with no significant labs or chest x-ray. She had a child by vaginal delivery [address] revealed mild right hydronephrosis and hydroureter. Else revealed a 2.3 cm enhancing lesion in the upper pole of the left kidney. My colleague ordered an ultrasound which is pending. Review of Systems Review of Systems Constitutional: Denies fever or chills [] Eyes: Denies change in visual acuity, redness, or eye pain [] HENT: Denies nasal congestion or sore throat [] Respiratory: Denies cough or shortness of breath [] Cardiovascular: No additional information not addressed in HPI [] GI: Denies vomiting, bloody stools or diarrhea [] : Denies dysuria or hematuria [] Musculoskeletal: Denies joint pain [] Integument: Denies rash or skin lesions [] Neurologic: Denies headache, focal weakness or sensory changes [] Endocrine: Denies polyuria or polydipsia [] All other systems were reviewed and found to be within normal limits, except as documented in this note. Current Medications Current Medications Current Medications Medications (Trade) Dose Ordered Sig/Jessica Start Time Stop Time Status Last Admin Dose Admin Acetaminophen/ Hydrocodone Bitart (Lortab 5/325) 1 tab STK-MED ONCE 01/02/18 19:31 01/02/18 19:44 DC Fentanyl Citrate (Fentanyl 2ml Vial) 50 mcg 1X ONCE 01/02/18 18:00 01/02/18 18:01 DC 01/02/18 17:57 50 MCG Iohexol (Omnipaque 300 Mg/ml) 75 ml STK-MED ONCE 01/02/18 14:30 01/02/18 15:30 DC Ketorolac Tromethamine (Toradol) 30 mg STK-MED ONCE 01/02/18 14:17 01/02/18 15:30 DC Ondansetron HCl (Zofran Odt) 4 mg STK-MED ONCE 01/02/18 14:27 01/02/18 15:30 DC Allergies Allergies Allergies Coded Allergies Type Severity Reaction Last Updated Verified No Known Drug Allergies 04/03/17 No Physical Exam Physical Exam Constitutional: Well developed, well nourished, no acute distress, non-toxic appearance. [] HENT: Normocephalic, atraumatic, bilateral external ears normal, oropharynx moist, no oral exudates, nose normal. [] Eyes: PERRLA, EOMI, conjunctiva normal, no discharge. [] Neck: Normal range of motion, no tenderness, supple, no stridor. [] Cardiovascular:Heart rate regular rhythm, no murmur [] Lungs & Thorax: Bilateral breath sounds clear to auscultation [] Abdomen: Bowel sounds normal, soft, no tenderness, no masses, no pulsatile masses. [] Skin: Warm, dry, no erythema, no rash. [] Back: CVA tenderness on left. [] Extremities: No tenderness, no cyanosis, no clubbing, ROM intact, no edema. [] Neurologic: Alert and oriented X 3, normal motor function, normal sensory function, no focal deficits noted. [] Psychologic: Affect normal, judgement normal, mood normal. [] Current Patient Data Lab Results Laboratory Tests Test 01/02/18 14:07 White Blood Count 5.5 x10^3/uL (4.0-11.0) Red Blood Count 3.74 x10^6/uL (3.50-5.40) Hemoglobin 12.6 g/dL (12.0-15.5) Hematocrit 36.8 % (36.0-47.0) Mean Corpuscular Volume 99 fL (79-100) Mean Corpuscular Hemoglobin 34 pg (25-35) Mean Corpuscular Hemoglobin Concent 34 g/dL (31-37) Red Cell Distribution Width 13.1 % (11.5-14.5) Platelet Count 217 x10^3/uL (140-400) Neutrophils (%) (Auto) 39 % (31-73) Lymphocytes (%) (Auto) 45 % (24-48) Monocytes (%) (Auto) 15 % (0-9) H Eosinophils (%) (Auto) 1 % (0-3) Basophils (%) (Auto) 0 % (0-3) Neutrophils # (Auto) 2.1 x10^3uL (1.8-7.7) Lymphocytes # (Auto) 2.5 x10^3/uL (1.0-4.8) Monocytes # (Auto) 0.8 x10^3/uL (0.0-1.1) Eosinophils # (Auto) 0.0 x10^3/uL (0.0-0.7) Basophils # (Auto) 0.0 x10^3/uL (0.0-0.2) Lactic Acid Level 0.7 mmol/L (0.4-2.0) Lipase 127 U/L (73-393) EKG EKG [] Radiology/Procedures Radiology/Procedures The patient's ultrasound showed a solid appearing mass in the superior left kidney about 3.3 x 2.7 x 2.3 cm with internal vascularity on color Doppler. There is no significant hydronephrosis of either kidney. Renal cell carcinoma possible although other mass such as oncocytoma difficult to discriminate by imaging.[] Impressions: The patient has a solid mass of the left superior kidney. I have advised her of these findings. It is consistent with her CT findings. I have advised the patient strongly to follow-up with a university manager within the next 1 week. She has stated verbal agreement. He was discharged with nausea medication and narcotic pain medication yesterday. She will fill these and use them for her pain as needed. I have not given her an additional prescription today. Course & Med Decision Making Course & Med Decision Making Pertinent Labs and Imaging studies reviewed. (See chart for details) [] Dragon Disclaimer Dragon Disclaimer This electronic medical record was generated, in whole or in part, using a voice recognition dictation system. Departure Departure: Impression: Primary Impression: Left flank pain Additional Impression: Left renal mass Disposition: 01 HOME, SELF-CARE Condition: STABLE Referrals: PCP,JUSTIN (PCP) CHELI RHODES Additional Instructions: Please follow-up with the university manager in the next 1 week. Problem Qualifiers ASHLEIGH KRISHNAN DO January 03, 2018 00:40
== END 2018-01-02 19:35 | disposition home or self-care (01) ==
LOC: ER 13:21
DX: O90.89 Other complications of the puerperium, not elsewhere classified (principal); N28.89 Other specified disorders of kidney and ureter; Z98.890 Other specified postprocedural states
CPT/HCPCS: 36415; 74177; 76770; 83605; 83690; 85025; 96374; 99285; J3010; 96372

== ENCOUNTER 2018-01-14 03:25 | Emergency (ER) | payer OTHER ==
[~2018-01-14] VITALS: Ht 157.5 cm; Wt 78.1 kg
--- NOTE | 2018-01-14 03:32 | ED.ADGEN ---
Past History Past Medical History: No Pertinent History Past Surgical History: No Surgical History Alcohol Use: None Drug Use: None Adult General Chief Complaint Chief Complaint " My Lt flank is hurting really bad.. I got this Lt renal mass. .. I went to a urology you gave me to follow up... and they did not take my insurance.. and then I went to .. and I got a MRI at [facility]..image center.. because I could not do the closed MRI.. and they had a open MRI.. and I ve got a follow up with - urology in 3 weeks.. .. I was at [facility] Sunday.. and they said I had urinary tract infection.. and started me on Macrodantin.. " " and the pain meds they gave me .. make me nauseated.. and I don't want to take them..." HPI HPI Patient is a 27 year old female who presents with above hx , Lt side and abd. pain and nausea. Pt. been seen here, [facility] and . Pt. presents tonight with complaints of increased nausea and pain. Reviewed prior CXR, CT and MRI. Pt. has mild Lt. hydronephrosis, 2.2 cm lesion suggestive of renal cell carcinoma. Pt. does have follow up with urology. Pt. is very anxious. Review of Systems Review of Systems Constitutional: Denies fever or chills [] Eyes: Denies change in visual acuity, redness, or eye pain [] HENT: Denies nasal congestion or sore throat [] Respiratory: Denies cough or shortness of breath [] Cardiovascular: No additional information not addressed in HPI [] GI: Complaints of abdominal pain, nausea, . Denies vomiting, bloody stools or diarrhea [] : Denies dysuria or hematuria [] Musculoskeletal: Left flank back pain Integument: Denies rash or skin lesions [] Neurologic: Denies headache, focal weakness or sensory changes [] Endocrine: Denies polyuria or polydipsia [] All other systems were reviewed and found to be within normal limits, except as documented in this note. Family History Family History Non-contributory Current Medications Current Medications Current Medications Medications (Trade) Dose Ordered Sig/Jessica Start Time Stop Time Status Last Admin Dose Admin Ceftriaxone Sodium 1 gm/ Sodium Chloride 50 ml @ 100 mls/hr 1X ONCE 01/14/18 04:00 5/21/18 04:56 DC 01/14/18 04:21 100 MLS/HR Ceftriaxone Sodium (Rocephin) 1 gm ONCE ONCE 01/14/18 05:00 01/14/18 05:01 DC Fentanyl (Duragesic 25mcg/ Hr) 1 patch 1X ONCE 01/14/18 05:15 01/14/18 05:16 DC 01/14/18 05:12 1 PATCH Lactated Ringer's 1,000 ml @ 100 mls/hr Q10H 01/14/18 03:59 01/14/18 13:58 01/14/18 04:21 100 MLS/HR Morphine Sulfate (Morphine 10mg Syringe) 10 mg 1X ONCE 01/14/18 04:00 01/14/18 04:56 DC 01/14/18 04:21 10 MG Ondansetron HCl (Zofran Odt) 8 mg 1X ONCE 01/14/18 04:15 01/14/18 04:55 DC 01/14/18 04:20 8 MG Sodium Chloride 50 ml @ As Directed STK-MED ONCE 01/14/18 04:16 01/14/18 04:17 DC Allergies Allergies Allergies Coded Allergies Type Severity Reaction Last Updated Verified No Known Drug Allergies 04/03/17 No Physical Exam Physical Exam Constitutional: Well developed, well nourished, in acute emotional distress, non -toxic appearance. [Tearful. HENT: Normocephalic, atraumatic, bilateral external ears normal, oropharynx moist, no oral exudates, nose normal. [] Eyes: PERRLA, EOMI, conjunctiva normal, no discharge. [] Neck: Normal range of motion, no tenderness, supple, no stridor. [] Cardiovascular:Heart rate regular rhythm, no murmur [] Lungs & Thorax: Bilateral breath sounds equal at apex on auscultation [] Abdomen: Bowel sounds decreased, soft, Lt flank tenderness, no masses, no pulsatile masses. [] Skin: Warm, dry, no erythema, no rash. [] Back: No tenderness, Lt. CVA tenderness. [] Extremities: No tenderness, no cyanosis, no clubbing, ROM intact, no edema. [] No psoas. Neurologic: Alert and oriented X 3, normal motor function, normal sensory function, no focal deficits noted. [] Psychologic: Affect very anxious, judgement normal, mood depressed. Current Patient Data Vital Signs Vital Signs Date Time Temp Pulse Resp B/P (MAP) Pulse Ox O2 Delivery O2 Flow Rate FiO2 01/14/18 03:25 99.0 90 16 100 Room Air Lab Results Laboratory Tests Test 01/14/18 03:35 01/14/18 04:03 Urine Collection Type Unknown Urine Color Yellow Urine Clarity Clear Urine pH 5.5 Urine Specific Anderson 1.025 Urine Protein Neg (NEG-TRACE) Urine Glucose (UA) Neg mg/dL (NEG) Urine Ketones (Stick) Neg mg/dL (NEG) Urine Blood Neg (NEG) Urine Nitrite Neg (NEG) Urine Bilirubin Neg (NEG) Urine Urobilinogen Dipstick 0.2 mg/dL (0.2 mg/dL) Urine Leukocyte Esterase Neg (NEG) Urine RBC 0 /HPF (0-2) Urine WBC Occ /HPF (0-4) Urine Squamous Epithelial Cells Occ /LPF Urine Bacteria 0 /HPF (0-FEW) White Blood Count 8.5 x10^3/uL (4.0-11.0) Red Blood Count 4.24 x10^6/uL (3.50-5.40) Hemoglobin 14.3 g/dL (12.0-15.5) Hematocrit 41.1 % (36.0-47.0) Mean Corpuscular Volume 97 fL (79-100) Mean Corpuscular Hemoglobin 34 pg (25-35) Mean Corpuscular Hemoglobin Concent 35 g/dL (31-37) Red Cell Distribution Width 13.6 % (11.5-14.5) Platelet Count 257 x10^3/uL (140-400) Neutrophils (%) (Auto) 81 % (31-73) H Lymphocytes (%) (Auto) 12 % (24-48) L Monocytes (%) (Auto) 7 % (0-9) Eosinophils (%) (Auto) 0 % (0-3) Basophils (%) (Auto) 0 % (0-3) Neutrophils # (Auto) 6.9 x10^3uL (1.8-7.7) Lymphocytes # (Auto) 1.0 x10^3/uL (1.0-4.8) Monocytes # (Auto) 0.6 x10^3/uL (0.0-1.1) Eosinophils # (Auto) 0.0 x10^3/uL (0.0-0.7) Basophils # (Auto) 0.0 x10^3/uL (0.0-0.2) Prothrombin Time 11.0 SEC (9.4-11.4) Prothrombin Time INR 1.1 (0.9-1.1) PTT 26 SEC (23-33) Sodium Level 140 mmol/L (136-145) Potassium Level 3.3 mmol/L (3.5-5.1) L Chloride Level 102 mmol/L (98-107) Carbon Dioxide Level 26 mmol/L (21-32) Anion Gap 12 (6-14) Blood Urea Nitrogen 10 mg/dL (7-20) Creatinine 0.9 mg/dL (0.6-1.0) Estimated GFR (Cockcroft-Gault) 75.7 Glucose Level 92 mg/dL (70-99) Calcium Level 8.5 mg/dL (8.5-10.1) Total Bilirubin 0.4 mg/dL (0.2-1.0) Direct Bilirubin 0.1 mg/dL (0.0-0.2) Aspartate Amino Transferase (AST) 17 U/L (15-37) Alanine Aminotransferase (ALT) 28 U/L (14-59) Alkaline Phosphatase 85 U/L (46-116) Total Protein 7.5 g/dL (6.4-8.2) Albumin 4.1 g/dL (3.4-5.0) EKG EKG [] Radiology/Procedures Radiology/Procedures . Prior films reviewed[] Course & Med Decision Making Course & Med Decision Making Pertinent Labs and Imaging studies reviewed. (See chart for details). Pt. to use fentanyl patch 25 q 3 days. Oxycodone for breakthrough pain up to 3 times a day. Zofran 8 mg up to 4 times a day for nausea and vomiting. Push clear fluids and fruit juices. Keep follow-up at urology at . Call for an earlier appointment. Avoid constipation with milk of magnesia and MiraLAX. Must keep follow-ups. Patient's questions answered and agrees to current medical plan. [] Final Impression Final Impression 1. Lt. flank pain 2. Nausea 3. Lt . 2.2 cm complex renal mass- suspected renal cell carcinoma.[] Dragon Disclaimer Dragon Disclaimer This electronic medical record was generated, in whole or in part, using a voice recognition dictation system. KEYANNA ESTES MD January 14, 2018 03:32
[2018-01-14] MEDS ORDERED: IV RINGERS SOLUTION,LACTATED 1,000 ML IV SCH (03:59)
[2018-01-14] MEDS ORDERED: MORPHINE SULFATE 10 MG/ML SYRINGE. SQ ONE (04:00)
[2018-01-14] MEDS ORDERED: ONDANSETRON ODT 4 MG TAB.RAPDIS PO ONE (04:15)
[2018-01-14] MEDS ORDERED: IV NORMAL SALINE 50ML 50 ML ONE (04:16)
[2018-01-14] MEDS ORDERED: cefTRIAXone SODIUM 1 GM VIAL IV ONE (04:17)
[2018-01-14 04:20] LABS: BASO % 0 % (0-3); EOS % 0 % (0-3); HEMATOCRIT 41.1 % (36.0-47.0); HEMOGLOBIN 14.3 g/dL (12.0-15.5); LYMPH % 12 % (24-48); MEAN CORPUSCULAR HEMOGLOBIN 34 pg (25-35); MEAN CORPUSCULAR HGB CONC 35 g/dL (31-37); MEAN CORPUSCULAR VOLUME 97 fL (79-100); MONO # 0.6 x10^3/uL (0.0-1.1); MONO % 7 % (0-9); NEUT # 6.9 x10^3uL (1.8-7.7); NEUT % 81 % (31-73); PLATELET COUNT 257 x10^3/uL (140-400); RED BLOOD COUNT 4.24 x10^6/uL (3.50-5.40); RED CELL DISTRIBUTION WIDTH 13.6 % (11.5-14.5); WHITE BLOOD COUNT 8.5 x10^3/uL (4.0-11.0)
[2018-01-14 04:25] LABS: BACTERIA,URINE 0 /HPF (0-FEW); BILIRUBIN,URINE NEG (NEG); CLARITY,URINE CLEAR; COLOR,URINE YELLOW; GLUCOSE,URINE NEG (NEG); NITRITE,URINE NEG (NEG); RBC,URINE 0 /HPF (0-2); SQUAMOUS EPITHELIAL CELL,UR OCC /LPF; UROBILINOGEN,URINE 0.2 mg/dL (0.2 mg/dL); WBC,URINE OCC /HPF (0-4)
[2018-01-14 04:30] LABS: ALBUMIN 4.1 g/dL (3.4-5.0); CALCIUM 8.5 mg/dL (8.5-10.1); CREATININE 0.9 mg/dL (0.6-1.0); DIRECT BILIRUBIN 0.1 mg/dL (0.0-0.2); GFR 75.7; POTASSIUM 3.3 mmol/L (3.5-5.1); TOTAL BILIRUBIN 0.4 mg/dL (0.2-1.0); TOTAL PROTEIN 7.5 g/dL (6.4-8.2)
[2018-01-14] MEDS ORDERED: ONDA8TAB12 PO (04:49)
[2018-01-14] MEDS ORDERED: OXYC-411 PO (04:49)
[2018-01-14] MEDS ORDERED: FENT1PAT15 TP (04:52)
[2018-01-14] MEDS ORDERED: cefTRIAXone IV Push 1 GM VIAL. IVP ONE (05:00)
[2018-01-14 05:06] VITALS: BP 131/82
[2018-01-14] MEDS ORDERED: fentaNYL 25MCG/HR 1 PATCH PATCH TD ONE (05:15)
== END 2018-01-14 05:22 | disposition home or self-care (01) ==
LOC: ER 03:25
DX: N28.89 Other specified disorders of kidney and ureter (principal)
CPT/HCPCS: 36415; 80048; 80076; 81001; 85025; 85610; 85730; 87040; 96365; 96372; 99285; J0696; J2270; J7120; Q0162

== ENCOUNTER 2018-02-20 12:33 | Emergency (ER) | payer OTHER ==
[~2018-02-20] VITALS: Ht 157.5 cm; Wt 71.7 kg
[~2018-02-20 12:33] MED LIST changes: +FENT1PAT15 TP; +ONDA8TAB12 PO; +OXYC-411 PO
--- NOTE | 2018-02-20 12:57 | RAD ---
CT head without intravenous contrast History: Left facial numbness and arm numbness. Code stroke. Comparison: None. Technique: Axial images are obtained of the head from the skull base through the vertex without IV contrast. Exposure: One or more of the following individualized dose reduction techniques were utilized for this examination: 1. Automated exposure control 2. Adjustment of the mA and/or kV according to patient size 3. Use of iterative reconstruction technique Findings: The ventricles are appropriate in size, shape, and location for the patient's age. No obvious intracranial mass, mass-effect, midline shift, hemorrhage or obvious acute infarction is identified. Basilar cisterns are patent. Bone windows demonstrate no acute calvarial abnormality. The visualized paranasal sinuses appear clear. Impression: 1. No acute intracranial process. Please note that CT can be relatively insensitive to acute ischemic infarction for up to 24 hours after symptom onset. 2. Results were called to emergency department staff, Dr. Spain, at 1254 hours. Electronically signed by: Cory Miller MD (02/20/2018 12:54 PM) [id number]
[2018-02-20] MEDS: KETOROLAC 30 MG/ML VIAL. IV ONE (13:05)
[2018-02-20] MEDS: IV NORMAL SALINE 1,000ML 1,000 ML IV ONE (13:05)
[2018-02-20] MEDS: ONDANSETRON PF 4 MG/2 ML VIAL. IV ONE (13:05)
--- NOTE | 2018-02-20 13:08 | EKG ---
[address] [address] Test Date: 2018-02-20 Test Time: 13:03:40 Pat Name: FORREST CHRISTIANSON Department: Room: Gender: F Echocardiologist: JORDEN : 1990 Requested By: AMBER CARSON Order Number: [id number] Reading MD: Ar Rubio MD Measurements Intervals [place] Rate: 69 P: 0 NC: 188 QRS: 3 QRSD: 86 T: 16 QT: 378 QTc: 406 Interpretive Statements SINUS RHYTHM Electronically Signed On 02-21-2018 16:25:07 CDT by Ar Rubio MD
[2018-02-20 13:19] LABS: BASO % 0 % (0-3); EOS % 1 % (0-3); HEMATOCRIT 40.8 % (36.0-47.0); LYMPH # 2.3 x10^3/uL (1.0-4.8); LYMPH % 35 % (24-48); MEAN CORPUSCULAR HEMOGLOBIN 33 pg (25-35); MEAN CORPUSCULAR HGB CONC 34 g/dL (31-37); MEAN CORPUSCULAR VOLUME 98 fL (79-100); MONO # 0.8 x10^3/uL (0.0-1.1); MONO % 12 % (0-9); NEUT # 3.3 x10^3uL (1.8-7.7); NEUT % 52 % (31-73); PLATELET COUNT 306 x10^3/uL (140-400); RED BLOOD COUNT 4.19 x10^6/uL (3.50-5.40); RED CELL DISTRIBUTION WIDTH 13.8 % (11.5-14.5); WHITE BLOOD COUNT 6.4 x10^3/uL (4.0-11.0)
[2018-02-20 13:32] LABS: ALBUMIN/GLOBULIN RATIO 1.1 (1.0-1.7); CALCIUM 8.8 mg/dL (8.5-10.1); CREATININE 0.9 mg/dL (0.6-1.0); GFR 75.7; TOTAL BILIRUBIN 0.3 mg/dL (0.2-1.0); TOTAL PROTEIN 7.5 g/dL (6.4-8.2)
[2018-02-20] MEDS: diphenhydrAMINE 50 MG/ML VIAL IVP ONE (13:41)
[2018-02-20 14:15] VITALS: BP 120/71
[2018-02-20] MEDS ORDERED: ONDA4TAB10 SL (14:19)
--- NOTE | 2018-02-20 14:20 | PHYS DOC ---
Past History Past Medical History: UTI, Other Additional Past Medical Histor: left renal mass Past Surgical History: No Surgical History Alcohol Use: None Drug Use: None Adult General Chief Complaint Chief Complaint: HEADACHE HPI HPI 27-year-old female patient complaining of sudden onset of right periorbital headache at 12:30 about 20 minutes prior to arrival to ER as a severe sharp pain with nausea and left fingers numbness. Patient states the numbness resolved after a few minutes and then she felt numbness of left side of lips associated with nausea. Patient rated her pain 9/10 and denies history of headache, head injury, fever and chills, neck pain, vomiting and diarrhea. Patient was diagnosed with left renal mass and had a scheduled for renal surgery and possible nephrectomy next week. Review of Systems Review of Systems Constitutional: Denies fever or chills [] Eyes: Denies change in visual acuity, redness, or eye pain [] HENT: Denies nasal congestion or sore throat [] Respiratory: Denies cough or shortness of breath [] Cardiovascular: No additional information not addressed in HPI [] GI: Denies abdominal pain, nausea, vomiting, bloody stools or diarrhea [] : Denies dysuria or hematuria [] Musculoskeletal: Denies back pain or joint pain [] Integument: Denies rash or skin lesions [] Neurologic: Reports headache and sensory change, denies focal weakness Endocrine: Denies polyuria or polydipsia [] All other systems were reviewed and found to be within normal limits, except as documented in this note. Current Medications Current Medications Current Medications Medications (Trade) Dose Ordered Sig/Jessica Start Time Stop Time Status Last Admin Dose Admin Diphenhydramine HCl (Benadryl) 50 mg 1X ONCE 02/20/18 14:00 02/20/18 14:01 DC 02/20/18 13:41 50 MG Ketorolac Tromethamine (Toradol) 30 mg 1X ONCE 02/20/18 13:00 02/20/18 13:01 DC 02/20/18 13:05 30 MG Ondansetron HCl (Zofran) 4 mg 1X ONCE 02/20/18 13:00 02/20/18 13:01 DC 02/20/18 13:05 4 MG Sodium Chloride 1,000 ml @ 1,000 mls/hr 1X ONCE 02/20/18 13:00 02/20/18 13:59 DC 02/20/18 13:05 1,000 MLS/HR Allergies Allergies Allergies Coded Allergies Type Severity Reaction Last Updated Verified No Known Drug Allergies 04/03/17 No Physical Exam Physical Exam Constitutional: Well developed, well nourished, mild distress, non-toxic appearance. [] HENT: Normocephalic, atraumatic, bilateral external ears normal, oropharynx moist, no oral exudates, nose normal. [] Eyes: PERRLA, EOMI, conjunctiva normal, no discharge. [] Neck: Normal range of motion, no tenderness, supple, no stridor. [] Cardiovascular:Heart rate regular rhythm, no murmur [] Lungs & Thorax: Bilateral breath sounds clear to auscultation [] Abdomen: Bowel sounds normal, soft, no tenderness, no masses, no pulsatile masses. [] Skin: Warm, dry, no erythema, no rash. [] Back: No tenderness, no CVA tenderness. [] Extremities: No tenderness, no cyanosis, no clubbing, ROM intact, no edema. [] Neurologic: Alert and oriented X 3, normal motor function, normal sensory function, no focal deficits noted. [] Psychologic: Affect normal, judgement normal, mood normal. [] Current Patient Data Vital Signs Vital Signs Date Time Temp Pulse Resp B/P (MAP) Pulse Ox O2 Delivery O2 Flow Rate FiO2 02/20/18 12:33 97.6 87 20 95 Room Air Lab Results Laboratory Tests Test 02/20/18 12:57 02/20/18 13:00 Glucose (Fingerstick) 92 mg/dL (70-99) White Blood Count 6.4 x10^3/uL (4.0-11.0) Red Blood Count 4.19 x10^6/uL (3.50-5.40) Hemoglobin 14.0 g/dL (12.0-15.5) Hematocrit 40.8 % (36.0-47.0) Mean Corpuscular Volume 98 fL (79-100) Mean Corpuscular Hemoglobin 33 pg (25-35) Mean Corpuscular Hemoglobin Concent 34 g/dL (31-37) Red Cell Distribution Width 13.8 % (11.5-14.5) Platelet Count 306 x10^3/uL (140-400) Neutrophils (%) (Auto) 52 % (31-73) Lymphocytes (%) (Auto) 35 % (24-48) Monocytes (%) (Auto) 12 % (0-9) H Eosinophils (%) (Auto) 1 % (0-3) Basophils (%) (Auto) 0 % (0-3) Neutrophils # (Auto) 3.3 x10^3uL (1.8-7.7) Lymphocytes # (Auto) 2.3 x10^3/uL (1.0-4.8) Monocytes # (Auto) 0.8 x10^3/uL (0.0-1.1) Eosinophils # (Auto) 0.0 x10^3/uL (0.0-0.7) Basophils # (Auto) 0.0 x10^3/uL (0.0-0.2) Prothrombin Time 11.1 SEC (9.4-11.4) Prothrombin Time INR 1.1 (0.9-1.1) Maternal Serum HCG Beta Subunit < 1 mIU/mL (0-6) Sodium Level 140 mmol/L (136-145) Potassium Level 4.0 mmol/L (3.5-5.1) Chloride Level 105 mmol/L (98-107) Carbon Dioxide Level 28 mmol/L (21-32) Anion Gap 7 (6-14) Blood Urea Nitrogen 12 mg/dL (7-20) Creatinine 0.9 mg/dL (0.6-1.0) Estimated GFR (Cockcroft-Gault) 75.7 BUN/Creatinine Ratio 13 (6-20) Glucose Level 85 mg/dL (70-99) Calcium Level 8.8 mg/dL (8.5-10.1) Total Bilirubin 0.3 mg/dL (0.2-1.0) Aspartate Amino Transferase (AST) 16 U/L (15-37) Alanine Aminotransferase (ALT) 31 U/L (14-59) Alkaline Phosphatase 80 U/L (46-116) Total Protein 7.5 g/dL (6.4-8.2) Albumin 4.0 g/dL (3.4-5.0) Albumin/Globulin Ratio 1.1 (1.0-1.7) EKG EKG EKG interpreted by me. EKG at 1303 showed normal sinus rhythm at rate of 69, no specific EKG abnormalities[] Radiology/Procedures Radiology/Procedures [][address] [id number] IMAGING REPORT Signed PATIENT: FORREST CHRISTIANSON ACCOUNT: [id number] : 1990 LOCATION: ER AGE: 27 SEX: F EXAM STATUS: REG ER ORD. PHYSICIAN: AMBER CARSON MD REASON: severe headache PROCEDURE: CT CODE STROKE HEAD WO CT head without intravenous contrast History: Left facial numbness and arm numbness. Code stroke. Comparison: None. Technique: Axial images are obtained of the head from the skull base through the vertex without IV contrast. Exposure: One or more of the following individualized dose reduction techniques were utilized for this examination: 1. Automated exposure control 2. Adjustment of the mA and/or kV according to patient size 3. Use of iterative reconstruction technique Findings: The ventricles are appropriate in size, shape, and location for the patient's age. No obvious intracranial mass, mass-effect, midline shift, hemorrhage or obvious acute infarction is identified. Basilar cisterns are patent. Bone windows demonstrate no acute calvarial abnormality. The visualized paranasal sinuses appear clear. Impression: 1. No acute intracranial process. Please note that CT can be relatively insensitive to acute ischemic infarction for up to 24 hours after symptom onset. 2. Results were called to emergency department staff, Dr. Carson, at 1254 hours. Electronically signed by: Cory Chilel MD (02/20/2018 12:54 PM) [place] [id number] DICTATED AND SIGNED BY: CORY CHILEL MD Course & Med Decision Making Course & Med Decision Making Pertinent Labs and Imaging studies reviewed. (See chart for details) Evaluation of patient in ER showed 27-year-old female patient complaining of sudden onset of headache and migratory dysuria. Patient had NIH scale of 0 and was in mild distress. Patient treated with IV fluid, Zofran, Toradol and Benadryl and rated her pain 2/10. Code stroke was activated at arrival of patient but she was not a candidate for TPA because of resolving the paresthesia and NIH scale of 0. Patient had a scheduled for renal surgery in few days and instructed to take [id number] Tylenol as needed for pain. Dragon Disclaimer Dragon Disclaimer This electronic medical record was generated, in whole or in part, using a voice recognition dictation system. Departure Departure: Disposition: HOME, SELF-CARE ( At 1418) Condition: IMPROVED Referrals: PCP,JUSTIN (PCP) Patient Instructions: General Headache Without Cause Additional Instructions: Drink plenty of liquids Follow-up with your primary care physician in 3-5 days Return to ER if not getting better Scripts Ondansetron (ZOFRAN ODT) 4 Mg Tab.rapdis 1 TAB SL Q8HRS, #15 TAB Prov: AMBER CARSON MD 02/20/18 AMBER CARSON MD Feb 20, 2018 14:19
== END 2018-02-20 14:45 | disposition home or self-care (01) ==
LOC: ER 12:33
DX: R51 Headache (principal); R30.0 Dysuria; Z87.440 Personal history of urinary (tract) infections
CPT/HCPCS: 36415; 70450; 80053; 82947; 84702; 85025; 85610; 93005; 96374; 96375; 99285; J1200; J1885; J2405; J7030

== ENCOUNTER 2018-06-24 20:38 | Emergency (ER) | payer OTHER ==
[~2018-06-24] VITALS: Ht 157.5 cm; Wt 73.6 kg
[~2018-06-24 20:38] MED LIST changes: +BENZ100C PO; +IBUP400T18 PO; +MECL25TA3 PO
--- NOTE | 2018-06-24 20:41 | ED.ADGEN ---
Past History Past Medical History: Cancer, UTI, Other Additional Past Medical Histor: left renal mass Past Surgical History: No Surgical History Alcohol Use: None Drug Use: None Adult General Chief Complaint Chief Complaint ".. I ve been sick for over a week... coughing up stuff .. green to castro... sinus congestion.. fever chills.. I am cough so much... my chest hurts..." HPI HPI Patient is a 27 year old female who presents with above hx and complaints productive cough and wheezing. Pt. has had upper sinus pressure and drainage. Has been exposed to her boyfriend has similar type presentation. No history of immunosuppression. No history of travel. Patient does have history of renal cancer that was resected at . Patient does smoke. She normally follows at . Review of Systems Review of Systems Constitutional: History of fever or chills [] Eyes: Denies change in visual acuity, redness, or eye pain [] HENT: History of nasal congestion and sore throat [] Respiratory: History of cough with discolored sputum Cardiovascular: No additional information not addressed in HPI [] GI: Denies abdominal pain, nausea, vomiting, bloody stools or diarrhea [] : Denies dysuria or hematuria [] Musculoskeletal: Denies back pain or joint pain [] Integument: Denies rash or skin lesions [] Neurologic: Denies headache, focal weakness or sensory changes [] Endocrine: Denies polyuria or polydipsia [] All other systems were reviewed and found to be within normal limits, except as documented in this note. Family History Family History Noncontributory Current Medications Current Medications Current Medications Medications (Trade) Dose Ordered Sig/Jessica Start Time Stop Time Status Last Admin Dose Admin Albuterol Sulfate (Ventolin Hfa Inhaler) 2 puff 1X ONCE 06/24/18 21:30 06/24/18 21:31 DC 06/24/18 21:30 2 PUFF Prednisone (Prednisone) 50 mg 1X ONCE 06/24/18 21:30 06/24/18 21:31 DC 06/24/18 21:50 50 MG Allergies Allergies Allergies Coded Allergies Type Severity Reaction Last Updated Verified measles, mumps, rubella,and varicel Allergy Severe 06/24/18 Yes Physical Exam Physical Exam Constitutional: Well developed, well nourished, in acute distress, non-toxic appearance. [] HENT: Normocephalic, atraumatic, bilateral external ears normal, injected pharynx, oropharynx moist, no oral exudates, nose swollen turbinates with rhinorrhea. Eyes: PERRLA, EOMI, conjunctiva normal, no discharge. [] Neck: Normal range of motion, no tenderness, supple, no stridor. [] Cardiovascular:Heart rate regular rhythm, no murmur [] Lungs & Thorax: Bilateral breath sounds equal apex with scattered wheezes on auscultation [] Abdomen: Bowel sounds normal, soft, no tenderness, no masses, no pulsatile masses. Old surgical scar Skin: Warm, dry, no erythema, no rash. [] Back: No tenderness, no CVA tenderness. [] Extremities: No tenderness, no cyanosis, no clubbing, ROM intact, no edema. [] Neurologic: Alert and oriented X 3, normal motor function, normal sensory function, no focal deficits noted. [] Psychologic: Affect anxious, judgement normal, mood normal. [] Current Patient Data Vital Signs Vital Signs Date Time Temp Pulse Resp B/P (MAP) Pulse Ox O2 Delivery O2 Flow Rate FiO2 06/24/18 22:40 76 20 122/79 (93) 99 06/24/18 21:41 Room Air 06/24/18 20:50 98.7 Lab Results Laboratory Tests Test 06/24/18 21:00 06/24/18 21:51 Influenza Type A (Rapid) Negative (NEGATIVE) Influenza Type B (Rapid) Negative (NEGATIVE) Group A Streptococcus Rapid Negative (NEGATIVE) EKG EKG [] Radiology/Procedures Radiology/Procedures [] Course & Med Decision Making Course & Med Decision Making Pertinent Labs and Imaging studies reviewed. (See chart for details). Patient take his Zithromax 250 with prednisone 50 mg daily x 5 days. . Patient to use MDI two puffs four times a day . Stop smoking. Follow-up primary care. Get flu vaccination when over this acute illness. Return if any concerns. Normal saline irrigation any helpful for congestion. Gargle with Listerine 4 times a day. Take tylenol and ibuprofen for discomfort. [] Final Impression Final Impression 1. Upper respiratory infection 2. Bronchitis[] Dragon Disclaimer Dragon Disclaimer This electronic medical record was generated, in whole or in part, using a voice recognition dictation system. KEYANNA ESTES MD Jun 24, 2018 20:41
[2018-06-24] MEDS ORDERED: predniSONE 10 MG TABLET PO ONE (21:30)
[2018-06-24] MEDS ORDERED: ALBUTEROL SULFATE 8GM INHALER. INH ONE (21:30)
[2018-06-24 22:01] LABS: INFLUENZA A PATIENT NEGATIVE (NEGATIVE); INFLUENZA B PATIENT NEGATIVE (NEGATIVE)
[2018-06-24] MEDS ORDERED: PRED50TA PO (22:09)
[2018-06-24] MEDS ORDERED: AZIT250T PO (22:09)
[2018-06-24 22:40] VITALS: BP 122/79
== END 2018-06-24 22:40 | disposition home or self-care (01) ==
LOC: ER 20:38
DX: J06.9 Acute upper respiratory infection, unspecified (principal); J40 Bronchitis, not specified as acute or chronic; Z87.440 Personal history of urinary (tract) infections; Z88.7 Allergy status to serum and vaccine
CPT/HCPCS: 87070; 87804; 87880; 94640; 99284; J7512; J7613

== ENCOUNTER 2018-10-31 18:28 | Emergency (ER) | payer OTHER ==
[~2018-10-31] VITALS: Ht 157.5 cm; Wt 79.3 kg
[~2018-10-31 18:28] MED LIST changes: +AZIT250T PO; +HYDR-3165 PO; -HYDR-971 PO; +PRED50TA PO
[2018-10-31] MEDS ORDERED: IV NORMAL SALINE 1,000ML 1,000 ML IV ONE (19:00)
[2018-10-31] MEDS ORDERED: KETOROLAC 15 MG/ML VIAL. ONE (19:05)
[2018-10-31] MEDS ORDERED: ONDANSETRON PF 4 MG/2 ML VIAL. IV ONE (19:15)
[2018-10-31] MEDS ORDERED: KETOROLAC 15 MG/ML VIAL. IV ONE (19:15)
[2018-10-31] MEDS ORDERED: FAMOTIDINE 20 MG/2 ML VIAL IVP ONE (19:15)
--- NOTE | 2018-10-31 19:24 | PHYS DOC ---
Past History Past Medical History: Cancer, UTI, Other Additional Past Medical Histor: left renal mass Past Surgical History: Cancer Surgery, Cholecystectomy Past Surgical History Partial nephrectomy Alcohol Use: Rarely Drug Use: None Adult General Chief Complaint Chief Complaint: FLU SYMPTOM HPI HPI Patient is a 28 year old female who presents with complaints of nausea, vomiting and dizziness which started earlier this afternoon around 1:30pm. She denies experiencing symptoms like this in the past. She describes the vomiting as intractable with worsening episodes, and her last episode occurring around 3: 30pm, and having the appearance of yellow/red food which she consumed earlier in the day. She had sausage, eggs, and biscuits for breakfast, and pepperoni pizza for lunch. Both meals were frozen preparations. Denies hematemesis. She describes her dizziness occurring with a prodrome of visualizing "black spots", and also admits to feeling "hot and cold flashes". Bright lights and standing makes her symptoms worse. Laying down and taking a dose of promethazine which she had left over from her prior has made her feel slightly better. Denies known sick contacts. Patient denies . Reports chronic diarrhea. Review of Systems Review of Systems Constitutional: Admits fevers and chills. Eyes: Denies change in visual acuity or eye pain. HENT: Denies nasal congestion, post-nasal drainage or sore throat. Respiratory: Denies cough or shortness of breath. Cardiovascular: Denies chest pain or palpitations GI: Admits abdominal pain, nausea, vomiting; reports chronic diarrhea. Denies hematemesis. : Denies dysuria or hematuria. Musculoskeletal: Denies back pain or joint pain. Integument: Denies rash or skin lesions. Neurologic: Admits right sided and right retro-orbital headache. Denies focal weakness or sensory changes. Complete systems were reviewed and found to be within normal limits, except as documented in this note. Family History Family History with two young children. Current Medications Current Medications Current Medications Medications (Trade) Dose Ordered Sig/Jessica Start Time Stop Time Status Last Admin Dose Admin Famotidine (Pepcid Vial) 20 mg 1X ONCE 10/31/18 19:15 10/31/18 19:16 DC Ketorolac Tromethamine (Toradol 15mg Vial) 15 mg STK-MED ONCE 10/31/18 19:05 10/31/18 19:06 DC Ondansetron HCl (Zofran) 4 mg 1X ONCE 10/31/18 19:15 10/31/18 19:16 DC Sodium Chloride 1,000 ml @ 1,000 mls/hr 1X ONCE 10/31/18 19:00 10/31/18 19:59 Allergies Allergies Allergies Coded Allergies Type Severity Reaction Last Updated Verified measles, mumps, rubella,and varicel Allergy Severe 06/24/18 Yes Physical Exam Physical Exam Constitutional: Well developed, well nourished, laying down and appears uncomfortable. Non-toxic appearance. HENT: Normocephalic, atraumatic, bilateral TMs normal, oropharynx moist, no oral exudates, nose normal. Eyes: Conjunctiva mildly pale, no discharge. Neck: Normal range of motion, no tenderness, supple, no meningeal signs Cardiovascular: Heart rate regular rhythm, no murmur. Lungs & Thorax: Bilateral breath sounds clear to auscultation. Abdomen: soft, no tenderness, no masses, no guarding, no pulsatile masses. Skin: Warm, dry, no erythema, no rash. Back: No tenderness, no CVA tenderness. Extremities: No tenderness, ROM intact, no edema. Neurologic: Alert and oriented, normal motor function, normal sensory function, no focal deficits noted. Psychologic: Affect normal, judgement normal, mood normal. Current Patient Data Vital Signs Vital Signs Date Time Temp Pulse Resp B/P (MAP) Pulse Ox O2 Delivery O2 Flow Rate FiO2 10/31/18 18:28 98.9 104 18 97 Room Air EKG EKG [] Radiology/Procedures Radiology/Procedures [] Course & Med Decision Making Course & Med Decision Making Pertinent Lab studies reviewed. (See chart for details) This is a 28-year-old female who presents with nausea, vomiting and dizziness since earlier this afternoon. Her symptoms are concerning for viral gastroenteritis. We have started her on IVFs, Zofran, Pepcid, and Ketoralac for symptomatic management. Labs obtained and posted to chart. Rapid influenza negative. Patient stable for discharge with outpatient follow-up with PCP. Discussed findings and plan with patient and family, who acknowledge understanding and agreement. Dragon Disclaimer Dragon Disclaimer This electronic medical record was generated, in whole or in part, using a voice recognition dictation system. Departure Departure: Impression: Primary Impression: Nausea & vomiting Disposition: 01 HOME, SELF-CARE Condition: IMPROVED Referrals: PCP,JUSTIN (PCP) Patient Instructions: Nausea and Vomiting, [id number], Viral Gastroenteritis , [id number] Scripts Famotidine (PEPCID) 20 Mg Tablet 1 TAB PO BID for Gastritis, #30 TAB 0 Refills Prov: MIKE REDDY DO 10/31/18 Ondansetron (ONDANSETRON ODT) 4 Mg Tab.rapdis 1 TAB PO PRN Q6-8HRS PRN for NAUSEA, #16 TAB Prov: MIKE REDDY DO 10/31/18 Problem Qualifiers Primary Impression: Nausea & vomiting Vomiting type: unspecified Vomiting Intractability: intractable Qualified Codes: R11.2 - Nausea with vomiting, unspecified MIKE REDDY DO Oct 31, 2018 19:24
[2018-10-31 19:25] VITALS: BP 127/57
[2018-10-31 19:25] LABS: INFLUENZA A PATIENT NEGATIVE (NEGATIVE); INFLUENZA B PATIENT NEGATIVE (NEGATIVE)
[2018-10-31 19:30] LABS: BASO % 0 % (0-3); EOS % 0 % (0-3); HEMOGLOBIN 14.1 g/dL (12.0-15.5); LYMPH # 1.3 x10^3/uL (1.0-4.8); LYMPH % 11 % (24-48); MEAN CORPUSCULAR HEMOGLOBIN 33 pg (25-35); MEAN CORPUSCULAR HGB CONC 34 g/dL (31-37); MEAN CORPUSCULAR VOLUME 99 fL (79-100); MONO # 0.7 x10^3/uL (0.0-1.1); MONO % 6 % (0-9); NEUT # 10.1 x10^3uL (1.8-7.7); NEUT % 83 % (31-73); PLATELET COUNT 256 x10^3/uL (140-400); RED BLOOD COUNT 4.24 x10^6/uL (3.50-5.40); RED CELL DISTRIBUTION WIDTH 13.2 % (11.5-14.5); WHITE BLOOD COUNT 12.2 x10^3/uL (4.0-11.0)
[2018-10-31 19:43] LABS: ALBUMIN 4.2 g/dL (3.4-5.0); ALBUMIN/GLOBULIN RATIO 1.2 (1.0-1.7); CALCIUM 8.8 mg/dL (8.5-10.1); CREATININE 0.7 mg/dL (0.6-1.0); GFR 100.4; POTASSIUM 3.9 mmol/L (3.5-5.1); TOTAL BILIRUBIN 0.3 mg/dL (0.2-1.0); TOTAL PROTEIN 7.8 g/dL (6.4-8.2)
[2018-10-31 20:03] LABS: BACTERIA,URINE FEW /HPF (0-FEW); BILIRUBIN,URINE NEG (NEG); CLARITY,URINE CLOUDY; COLOR,URINE YELLOW; GLUCOSE,URINE NEG (NEG); NITRITE,URINE NEG (NEG); RBC,URINE 0 /HPF (0-2); SQUAMOUS EPITHELIAL CELL,UR MOD /LPF; UROBILINOGEN,URINE 0.2 mg/dL (0.2 mg/dL); WBC,URINE OCC /HPF (0-4)
[2018-10-31] MEDS ORDERED: ONDA4TAB12 PO (20:48)
[2018-10-31] MEDS ORDERED: FAMO-63 PO (20:48)
== END 2018-10-31 21:18 | disposition home or self-care (01) ==
LOC: ER 18:28
DX: R11.2 Nausea with vomiting, unspecified (principal); R42 Dizziness and giddiness; R10.9 Unspecified abdominal pain; K52.9 Noninfective gastroenteritis and colitis, unspecified; Z90.49 Acquired absence of other specified parts of digestive tract; Z90.5 Acquired absence of kidney; Z88.8 Allergy status to other drugs, medicaments and biological substances
CPT/HCPCS: 36415; 80053; 81001; 81025; 83690; 83735; 85025; 87086; 87804; 96361; 96374; 96375; 99283; J1885; J2405; J3490; 87186; J7030

== ENCOUNTER 2019-04-22 22:22 | Emergency (ER) | payer OTHER ==
[~2019-04-22] VITALS: Ht 157.5 cm; Wt 79.3 kg
[~2019-04-22 22:22] MED LIST changes: +FAMO-63 PO; +ONDA4TAB12 PO
[2019-04-22] MEDS ORDERED: ONDANSETRON PF 4 MG/2 ML VIAL. IV ONE (22:45)
[2019-04-22] MEDS ORDERED: IV NORMAL SALINE 1,000ML 1,000 ML IV ONE (22:45)
[2019-04-22 23:13] LABS: BASO % 0 % (0-3); EOS # 0.1 x10^3/uL (0.0-0.7); EOS % 1 % (0-3); HEMATOCRIT 38.6 % (36.0-47.0); HEMOGLOBIN 13.2 g/dL (12.0-15.5); LYMPH # 3.1 x10^3/uL (1.0-4.8); LYMPH % 49 % (24-48); MEAN CORPUSCULAR HEMOGLOBIN 35 pg (25-35); MEAN CORPUSCULAR HGB CONC 34 g/dL (31-37); MEAN CORPUSCULAR VOLUME 101 fL (79-100); MONO # 0.6 x10^3/uL (0.0-1.1); MONO % 10 % (0-9); NEUT # 2.6 x10^3uL (1.8-7.7); NEUT % 41 % (31-73); PLATELET COUNT 246 x10^3/uL (140-400); RED BLOOD COUNT 3.82 x10^6/uL (3.50-5.40); RED CELL DISTRIBUTION WIDTH 12.3 % (11.5-14.5); WHITE BLOOD COUNT 6.3 x10^3/uL (4.0-11.0)
[2019-04-22 23:18] LABS: BILIRUBIN,URINE NEG (NEG); CLARITY,URINE CLEAR; COLOR,URINE YELLOW; GLUCOSE,URINE NEG (NEG)
[2019-04-22 23:19] LABS: BACTERIA,URINE FEW /HPF (0-FEW); NITRITE,URINE NEG (NEG); RBC,URINE OCC /HPF (0-2); SQUAMOUS EPITHELIAL CELL,UR OCC /LPF; UROBILINOGEN,URINE 0.2 mg/dL (0.2 mg/dL)
[2019-04-22 23:23] LABS: ALBUMIN 3.9 g/dL (3.4-5.0); ALBUMIN/GLOBULIN RATIO 1.1 (1.0-1.7); CALCIUM 8.7 mg/dL (8.5-10.1); CREATININE 0.9 mg/dL (0.6-1.0); GFR 75.1; POTASSIUM 3.7 mmol/L (3.5-5.1); TOTAL BILIRUBIN 0.3 mg/dL (0.2-1.0); TOTAL PROTEIN 7.3 g/dL (6.4-8.2)
[2019-04-23] MEDS ORDERED: IOHEXOL 300 MG/ML 75 ML VIAL. IV ONE
[2019-04-23] MEDS ORDERED: PROCHLORPERAZINE 10 MG/2 ML VIAL. IV ONE (00:15)
[2019-04-23] MEDS ORDERED: MORPHINE SULFATE 4 MG/ML DISP.SYRIN. IV ONE (00:15)
[2019-04-23] MEDS ORDERED: CONTRAST GIVEN MC PRN (00:15)
--- NOTE | 2019-04-23 00:35 | RAD ---
CT ABD PELV W/ IV CONTRST ONLY Indication: Diarrhea, nausea and vomiting Technique: Postcontrast CT imaging was performed of the abdomen pelvis, multiplanar reconstruction images submitted. No oral contrast was given. One or more of the following individualized dose reduction techniques were utilized for this examination: 1. Automated exposure control 2. Adjustment of the mA and/or kV according to patient size 3. Use of iterative reconstruction technique. Comparison: January 02, 2018 Findings: There is been partial superior left nephrectomy. Both kidneys enhance, no hydronephrosis. No focal abnormality is identified liver, pancreas, spleen. There is no abnormality of the limited visualized lung bases. Gallbladder is no longer visualized although no clips in the gallbladder fossa. Accurate evaluation of bowel is limited without oral contrast. Bowel is not significantly dilated. There is no free fluid or free air. There is now IUD present in the uterus. Normal caliber appendix is visualized without adjacent inflammatory change. There is likely degree of small bowel wall thickening proximally in the left abdomen. IMPRESSION: 1. There is likely degree of proximal small bowel wall thickening in the left abdomen as may be seen with enteritis. There is no CT evidence of acute appendicitis. 2. There has been partial superior left nephrectomy for resection of previously seen mass. Electronically signed by: Eric Thomas MD (04/23/2019 12:32 AM) [facility]
[2019-04-23] MEDS ORDERED: HYDR-3165 PO (00:59)
[2019-04-23] MEDS ORDERED: ONDA4TAB7 PO (00:59)
[2019-04-23 01:06] VITALS: BP 126/83
--- NOTE | 2019-04-23 01:09 | PHYS DOC ---
Past History Past Medical History: No Pertinent History, Other Additional Past Medical Histor: left renal mass Past Surgical History: Cancer Surgery, Cholecystectomy Alcohol Use: Rarely Drug Use: None Adult General Chief Complaint Chief Complaint: NAUSEA/VOMITING/DIARRHEA HPI HPI Patient is a 28-year-old female presenting with chief complaint of abdominal pain as well as vomiting and diarrhea for the last 4 days. Nonbloody no fever ju st having increasing dull pain in the left mid abdominal area. 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 None and not on any chemotherapy or radiation at this time no sick contacts Review of Systems Review of Systems Constitutional: Denies fever or chills [] Eyes: Denies change in visual acuity, redness, or eye pain [] HENT: Denies nasal congestion or sore throat [] Musculoskeletal: Denies back pain or joint pain [] Integument: Denies rash or skin lesions [] Neurologic: Denies headache, focal weakness or sensory changes [] Endocrine: Denies polyuria or polydipsia [] All other systems were reviewed and found to be within normal limits, except as documented in this note. Current Medications Current Medications Current Medications Medications (Trade) Dose Ordered Sig/Jessica Start Time Stop Time Status Last Admin Dose Admin Fentanyl Citrate (Fentanyl 2ml Vial) 50 mcg 1X ONCE 04/22/19 22:45 04/22/19 23:11 DC 04/22/19 22:57 50 MCG Info (Do NOT chart on this entry -- for MONITORING) 1 each PRN DAILY PRN 04/23/19 00:15 04/25/19 00:14 Iohexol (Omnipaque 300 Mg/ml) 75 ml 1X ONCE 04/23/19 00:00 04/23/19 00:01 DC 04/23/19 00:03 75 ML Morphine Sulfate (Morphine 4mg Syringe) 4 mg 1X ONCE 04/23/19 00:15 04/23/19 00:43 DC 04/23/19 00:23 4 MG Ondansetron HCl (Zofran) 4 mg 1X ONCE 04/22/19 22:45 04/22/19 23:11 DC 04/22/19 22:57 4 MG Prochlorperazine Edisylate (Compazine) 10 mg 1X ONCE 04/23/19 00:15 04/23/19 00:43 DC 04/23/19 00:23 10 MG Sodium Chloride 1,000 ml @ 1,000 mls/hr 1X ONCE 04/22/19 22:45 04/22/19 23:44 DC 04/22/19 22:57 1,000 MLS/HR Allergies Allergies Allergies Coded Allergies Type Severity Reaction Last Updated Verified measles, mumps, rubella,and varicel Allergy Severe 06/24/18 Yes Physical Exam Physical Exam Constitutional: Well developed, well nourished, no acute distress, non-toxic appearance. [] HENT: Normocephalic, atraumatic, bilateral external ears normal, oropharynx moist, no oral exudates, nose normal. [] Eyes: PERRLA, EOMI, conjunctiva normal, no discharge. [] Neck: Normal range of motion, no tenderness, supple, no stridor. [] Cardiovascular:Heart rate regular rhythm, no murmur [] Lungs & Thorax: Bilateral breath sounds clear to auscultation [] Abdomen: Bowel sounds normal, soft, no tenderness, no masses, no pulsatile masses. [] Skin: Warm, dry, no erythema, no rash. [] Back: No tenderness, no CVA tenderness. [] Extremities: No tenderness, no cyanosis, no clubbing, ROM intact, no edema. [] Neurologic: Alert and oriented X 3, normal motor function, normal sensory funct ion, no focal deficits noted. [] Psychologic: Affect normal, judgement normal, mood normal. [] Current Patient Data Vital Signs Vital Signs Date Time Temp Pulse Resp B/P (MAP) Pulse Ox O2 Delivery O2 Flow Rate FiO2 04/23/19 00:23 20 99 Room Air 04/22/19 22:24 98.5 66 Lab Results Laboratory Tests Test 04/22/19 22:26 04/22/19 22:45 04/22/19 22:54 Urine Collection Type Unknown Urine Color Yellow Urine Clarity Clear Urine pH 5.5 Urine Specific Blount 1.020 Urine Protein Neg (NEG-TRACE) Urine Glucose (UA) Neg mg/dL (NEG) Urine Ketones (Stick) Neg mg/dL (NEG) Urine Blood Neg (NEG) Urine Nitrite Neg (NEG) Urine Bilirubin Neg (NEG) Urine Urobilinogen Dipstick 0.2 mg/dL (0.2 mg/dL) Urine Leukocyte Esterase Neg (NEG) Urine RBC Occ /HPF (0-2) Urine WBC 1-4 /HPF (0-4) Urine Squamous Epithelial Cells Occ /LPF Urine Bacteria Few /HPF (0-FEW) Urine Mucus Slight /LPF White Blood Count 6.3 x10^3/uL (4.0-11.0) Red Blood Count 3.82 x10^6/uL (3.50-5.40) Hemoglobin 13.2 g/dL (12.0-15.5) Hematocrit 38.6 % (36.0-47.0) Mean Corpuscular Volume 101 fL (79-100) H Mean Corpuscular Hemoglobin 35 pg (25-35) Mean Corpuscular Hemoglobin Concent 34 g/dL (31-37) Red Cell Distribution Width 12.3 % (11.5-14.5) Platelet Count 246 x10^3/uL (140-400) Neutrophils (%) (Auto) 41 % (31-73) Lymphocytes (%) (Auto) 49 % (24-48) H Monocytes (%) (Auto) 10 % (0-9) H Eosinophils (%) (Auto) 1 % (0-3) Basophils (%) (Auto) 0 % (0-3) Neutrophils # (Auto) 2.6 x10^3uL (1.8-7.7) Lymphocytes # (Auto) 3.1 x10^3/uL (1.0-4.8) Monocytes # (Auto) 0.6 x10^3/uL (0.0-1.1) Eosinophils # (Auto) 0.1 x10^3/uL (0.0-0.7) Basophils # (Auto) 0.0 x10^3/uL (0.0-0.2) Sodium Level 140 mmol/L (136-145) Potassium Level 3.7 mmol/L (3.5-5.1) Chloride Level 104 mmol/L (98-107) Carbon Dioxide Level 27 mmol/L (21-32) Anion Gap 9 (6-14) Blood Urea Nitrogen 13 mg/dL (7-20) Creatinine 0.9 mg/dL (0.6-1.0) Estimated GFR (Cockcroft-Gault) 75.1 BUN/Creatinine Ratio 14 (6-20) Glucose Level 86 mg/dL (70-99) Calcium Level 8.7 mg/dL (8.5-10.1) Total Bilirubin 0.3 mg/dL (0.2-1.0) Aspartate Amino Transferase (AST) 12 U/L (15-37) L Alanine Aminotransferase (ALT) 17 U/L (14-59) Alkaline Phosphatase 55 U/L (46-116) Total Protein 7.3 g/dL (6.4-8.2) Albumin 3.9 g/dL (3.4-5.0) Albumin/Globulin Ratio 1.1 (1.0-1.7) Lipase 122 U/L (73-393) POC Urine HCG, Qualitative hcg negative (Negative) EKG EKG [] Radiology/Procedures Radiology/Procedures [] Impressions: IMPRESSION: 1. There is likely degree of proximal small bowel wall thickening in the left abdomen as may be seen with enteritis. There is no CT evidence of acute appendicitis. 2. There has been partial superior left nephrectomy for resection of previously seen mass. Electronically signed by: Eric Thomas MD (04/23/2019 12:32 AM) [facility] Course & Med Decision Making Course & Med Decision Making Pertinent Labs and Imaging studies reviewed. (See chart for details) []28 YO F N/V/D LEFT UPPER ABDO DISCOMFORT GIVEN PRIRO RENAL CANCER HX OPTED TO IMAGE NOTED FINDINGS LIKELY VIRAL PT WELL APPERAING SYMPTOMATIC RELIEF PROVIDED RETURN PREC DISCUSSED Dragon Disclaimer [place] Disclaimer This electronic medical record was generated, in whole or in part, using a voice recognition dictation system. Departure Departure: Impression: Primary Impression: Abdominal pain Disposition: HOME, SELF-CARE Condition: STABLE Patient Instructions: Abdominal Pain (Nonspecific) Scripts Ondansetron Hcl (ZOFRAN) 4 Mg Tablet 1 TAB PO Q6HRS PRN for VOMITING, #20 TAB Prov: CLEOPATRA MERCADO MD 04/23/19 Hydrocodone Bit/Acetaminophen (NORCO 5-325 TABLET) 1 Each Tablet 1 TAB PO BID PRN for PAIN, #10 TAB Prov: CLEOPATRA MERCADO MD 04/23/19 CLEOPATRA MERCADO MD Apr 23, 2019 01:09
== END 2019-04-23 01:08 | disposition home or self-care (01) ==
LOC: ER 22:22
DX: R10.12 Left upper quadrant pain (principal); R11.2 Nausea with vomiting, unspecified; R19.7 Diarrhea, unspecified; Z90.49 Acquired absence of other specified parts of digestive tract; Z88.7 Allergy status to serum and vaccine
CPT/HCPCS: 36415; 74177; 80053; 81001; 81025; 83690; 85025; 96361; 96374; 96375; 99285; J0780; J2270; J2405; J3010; Q9967; J7030

== ENCOUNTER 2020-03-31 19:26 | Emergency (ER) | payer OTHER ==
[~2020-03-31] VITALS: Ht 157.5 cm; Wt 65.0 kg
[~2020-03-31 19:26] MED LIST changes: +MECL-75 PO; -MECL25TA3 PO; +ONDA4TAB7 PO; -OXYC-411 PO; +OXYC1TAB20 PO
--- NOTE | 2020-03-31 20:30 | PHYS DOC ---
Past History Past Medical History: No Pertinent History, Cancer, Other Additional Past Medical Histor: left renal mass Past Surgical History: Cancer Surgery, Cholecystectomy Alcohol Use: Rarely Drug Use: None General Adult EDM: Chief Complaint: Neck Pain HPI: HPI: ".. I was with my this morning.. and got a injury to my neck..and the pain has never .. let up.. I am stuck in this twisted position..." "You are the one that gave me the diagnosis of cancer of my left kidney..." Patient is a 29 year old female who presents with above hx and complaints right sided torticollis after sexual intercourse this morning. No specific history of a ballistic trauma , but may have strained her neck. Patient has obvious muscle spasm of the trapezius. Distal neurovascular appears to be intact. No midline tenderness of the spine. No history of fever or chills. No history of recent travel. No history immunosuppression. Patient does have a significant history of renal cell carcinoma and received a partial nephrectomy on the left. Has been following at [facility] for monitoring of the renal cancer issue. Not on chemotherapy. Review of Systems: Review of Systems: Constitutional: Denies fever or chills Eyes: Denies change in visual acuity HENT: Denies nasal congestion or sore throat . Complaints of neck pain and spasm. Respiratory: Denies cough or shortness of breath Cardiovascular: Denies chest pain or edema GI: Denies abdominal pain, nausea, vomiting, bloody stools or diarrhea : Denies dysuria Musculoskeletal: Denies back pain or joint pain Integument: Denies rash Neurologic: Denies headache, focal weakness or sensory changes Endocrine: Denies polyuria or polydipsia Lymphatic: Denies swollen glands Psychiatric: Denies depression or anxiety Heart Score: Risk Factors: Risk Factors: DM, Current or recent (<one month) smoker, HTN, HLP, family history of CAD, obesity. Risk Scores: Score 0 - 3: 2.5% MACE over next 6 weeks - Discharge Home Score 4 - 6: 20.3% MACE over next 6 weeks - Admit for Clinical Observation Score 7 - 10: 72.7% MACE over next 6 weeks - Early Invasive Strategies Family History: Family History: Noncontributory Current Medications: Current Meds: See nursing for home meds Allergies: Allergies: Allergies Coded Allergies Type Severity Reaction Last Updated Verified measles, mumps, rubella,and varicel Allergy Severe 06/24/18 Yes Physical Exam: PE: Constitutional: Moderate acute distress, non-toxic appearance. [] HENT: Normocephalic, atraumatic, bilateral external ears normal, oropharynx moist, no oral exudates, nose normal. [] Eyes: PERRLA, EOMI, conjunctiva normal, no discharge. [] Neck: Decreased range of motion, right trapezius muscle spasm tenderness, supple, no stridor. [] Cardiovascular:Heart rate regular rhythm, no murmur [] Lungs & Thorax: Bilateral breath sounds equal at apex auscultation [] Abdomen: Bowel sounds normal, soft, no tenderness, no masses, no pulsatile masses. Nephrectomy scar Skin: Warm, dry, no erythema, no rash. [] Back: No tenderness, no CVA tenderness. [] Extremities: No tenderness, no cyanosis, no clubbing, ROM intact, no edema. [] Neurologic: Alert and oriented X 3, normal motor function, normal sensory function, no focal deficits noted. [] DTRs +2 patellar brachial. Joiner Helper equal. No drift. Psychologic: Affect anxious , judgement normal, mood normal. [] Current Patient Data: Labs: Laboratory Tests Test 03/31/20 19:51 POC Urine HCG, Qualitative hcg negative (Negative) EKG: EKG: [] Radiology/Procedures: Radiology/Procedures: [] IMAGING REPORT Signed PATIENT: FORREST CHRISTIANSON ACCOUNT: [id number] : 1990 LOCATION: ER AGE: 29 SEX: F EXAM STATUS: REG ER ORD. PHYSICIAN: KEYANNA ESTES MD REASON: Injury to neck, severe right sided pain, maynard Hx of renal cancer PROCEDURE: CT HEAD AND CERVICAL SPINE WO Exam: CT head and cervical spine INDICATION: Severe right-sided pain TECHNIQUE: Sequential axial images through the head and cervical spine were obtained without the administration of IV contrast. Comparisons: None FINDINGS: Head: No focal parenchymal lesion or hemorrhage is identified. There is no midline shift or sulcal effacement. No acute vascular territory infarction is identified. Colon-white distinction is preserved. The ventricular system is within normal limits without compression hydrocephalus. The basal cisterns are well maintained. The visualized portions of the paranasal sinuses and mastoid air cells are well-pneumatized. No acute fractures. Cervical spine: There is reversal of the normal cervical lordosis. Vertebral body heights are well-maintained. Fracture to the cervical spine is not identified. No significant spondylotic change in the cervical spine. Visualized paraspinal soft tissues are unremarkable. IMPRESSION: 1. No acute intracranial abnormality. 2. Negative CT C-spine for acute traumatic injury. Exposure: One or more of the following in the visualized dose reduction techniques were utilized for this examination: 1. Automated exposure control 2. Adjustment of the MA and/or KV according to patient size Use of iterative of reconstructive technique Electronically signed by: Lizbeth Galvan MD (03/31/2020 9:33 PM) [id number] DICTATED AND SIGNED BY: LIZBETH GALVAN MD DATE: 03/31/202132 CC: KEYANNA ESTES MD; AKASH SCHMITT MD ~ Course & Med Decision Making: Course & Med Decision Making Pertinent Labs and Imaging studies reviewed. (See chart for details) Use ice packs as needed for the next couple days. After a couple days may advance to moist heat. May use gentle massage. May take Tylenol and ibuprofen for pain. May take a Vicoprofen for marked pain up to 4 times a day. Patient to take Flexeril 10 mg up to 3 times a day for muscle spasms. Patient return if any concerns. Patient warned about use of NSAIDs with her history of renal cancer and partial nephrectomy. Patient follow-up primary care. Patient keep follow-up at her cancer clinic. Use a small towel roll to support neck during sleeping Patient did have partial release of her muscle spasms with meds given during ED visit. Impression: 1. Acute torticollis 2. Sprain strain cervical 3. History of renal cell carcinoma [] Dragon Disclaimer: Dragon Disclaimer: This electronic medical record was generated, in whole or in part, using a voice recognition dictation system. Departure Departure: Disposition: 01 HOME/RESIDENCE PRIOR TO ADM Condition: STABLE Referrals: AKASH SCHMITT MD (PCP) Scripts Cyclobenzaprine Hcl (CYCLOBENZAPRINE HCL) 10 Mg Tablet 10 MG PO TID PRN for prn, #30 TAB Prov: KEYANNA ESTES MD 03/31/20 Hydrocodone/Ibuprofen (HYDROCODONE-IBUPROFEN 7.5-200 ) 1 Each Tablet 1 TAB PO PRN Q6HRS PRN for PAIN, #30 TAB 0 Refills Prov: KEYANNA ESTES MD 03/31/20 Justification of Admission: Justification of Admission: Justification of Admission Dx: N/A Dragon Disclaimer This chart was dictated in whole or in part using Voice Recognition software in a busy, high-work load, and often noisy Emergency Department environment. It may contain unintended and wholly unrecognized errors or omissions. KEYANNA ESTES MD Mar 31, 2020 20:30
[2020-03-31] MEDS ORDERED: KETOROLAC 60 MG/2 ML VIAL. IM ONE (20:40)
[2020-03-31] MEDS ORDERED: ORPHENADRINE CITRATE 60 MG/2 ML VIAL. IM ONE (20:40)
[2020-03-31] MEDS ORDERED: oxyCODONE/APAP 5/325 1 TAB TABLET PO ONE (20:40)
[2020-03-31] MEDS ORDERED: LORazepam 1 MG TABLET PO ONE (20:40)
--- NOTE | 2020-03-31 21:36 | RAD ---
Exam: CT head and cervical spine INDICATION: Severe right-sided pain TECHNIQUE: Sequential axial images through the head and cervical spine were obtained without the administration of IV contrast. Comparisons: None FINDINGS: Head: No focal parenchymal lesion or hemorrhage is identified. There is no midline shift or sulcal effacement. No acute vascular territory infarction is identified. Colon-white distinction is preserved. The ventricular system is within normal limits without compression hydrocephalus. The basal cisterns are well maintained. The visualized portions of the paranasal sinuses and mastoid air cells are well-pneumatized. No acute fractures. Cervical spine: There is reversal of the normal cervical lordosis. Vertebral body heights are well-maintained. Fracture to the cervical spine is not identified. No significant spondylotic change in the cervical spine. Visualized paraspinal soft tissues are unremarkable. IMPRESSION: 1. No acute intracranial abnormality. 2. Negative CT C-spine for acute traumatic injury. Exposure: One or more of the following in the visualized dose reduction techniques were utilized for this examination: 1. Automated exposure control 2. Adjustment of the MA and/or KV according to patient size Use of iterative of reconstructive technique Electronically signed by: Lizbeth De La Torre MD (03/31/2020 9:33 PM) [id number]
[2020-03-31] MEDS ORDERED: CYCL-331 PO (21:51)
[2020-03-31] MEDS ORDERED: HYDR-1179 PO (21:51)
[2020-03-31 22:00] VITALS: BP 120/75
== END 2020-03-31 22:15 | disposition home or self-care (01) ==
LOC: ER 19:26
DX: S13.9XXA Sprain of joints and ligaments of unspecified parts of neck, initial encounter (principal); M43.6 Torticollis; Z85.528 Personal history of other malignant neoplasm of kidney; Z88.7 Allergy status to serum and vaccine; X50.9XXA Other and unspecified overexertion or strenuous movements or postures, initial encounter; Y93.89 Activity, other specified; Y92.89 Other specified places as the place of occurrence of the external cause; Y99.8 Other external cause status
CPT/HCPCS: 70450; 72125; 81025; 96372; 99285; J1885; J2360

== ENCOUNTER 2020-05-10 19:47 | Emergency (ER) | payer OTHER ==
[~2020-05-10] VITALS: Ht 157.5 cm; Wt 65.0 kg
[~2020-05-10 19:47] MED LIST changes: +CYCL-331 PO; +HYDR-1179 PO
[2020-05-10 19:55] VITALS: BP 121/87
[2020-05-10] MEDS ORDERED: FLUT9.9S NS (20:39)
[2020-05-10] MEDS ORDERED: FEXO60TA25 PO (20:39)
--- NOTE | 2020-05-10 20:39 | PHYS DOC ---
Past History Past Medical History: No Pertinent History, Cancer, Other Additional Past Medical Histor: left renal mass Past Surgical History: Cancer Surgery, Cholecystectomy Alcohol Use: Rarely Drug Use: None General Adult EDM: Chief Complaint: COUGH HPI: HPI: The history was obtained from the patient. Patient is a 29-year-old female with PMH renal cell carcinoma who presents with a chief complaint of congestion. Patient states she has had congestion and sore throat over the past 2 days. She denies any cough. Denies chest pain or shortness of breath. Notes that they have an air conditioner in their bedroom that appears quite moldy. She does note some watery eyes. Her concern is that she may be experiencing a mold infection versus coronavirus. She notes that her at home is had similar symptoms and had a temperature of 100.1 prior to arrival. She has not tried medicine prior to arrival. Denies syncope. Denies any back pain. Denies objective fevers in herself. Denies any recent antibiotics. Does not see anyone for this complaint prior to the date. No other complaints. Review of Systems: Review of Systems: Constitutional: Denies fever or chills Eyes: Denies change in visual acuity HENT: Positive for nasal congestion and sore throat. Respiratory: Denies cough or shortness of breath Cardiovascular: Denies chest pain or edema GI: Denies abdominal pain, nausea, vomiting, bloody stools or diarrhea : Denies dysuria Musculoskeletal: Denies back pain or joint pain Integument: Denies rash Neurologic: Denies headache, focal weakness or sensory changes Endocrine: Denies polyuria or polydipsia Lymphatic: Denies swollen glands Psychiatric: Denies depression or anxiety Heart Score: Risk Factors: Risk Factors: DM, Current or recent (<one month) smoker, HTN, HLP, family history of CAD, obesity. Risk Scores: Score 0 - 3: 2.5% MACE over next 6 weeks - Discharge Home Score 4 - 6: 20.3% MACE over next 6 weeks - Admit for Clinical Observation Score 7 - 10: 72.7% MACE over next 6 weeks - Early Invasive Strategies Allergies: Allergies: Allergies Coded Allergies Type Severity Reaction Last Updated Verified measles, mumps, rubella,and varicel Allergy Severe 06/24/18 Yes Physical Exam: PE: Constitutional: Well developed, well nourished, no acute distress, non-toxic appearance. [] HENT: Normocephalic, atraumatic, bilateral external ears normal, oropharynx moist, no oral exudates, nose normal. [] Eyes: PERRLA, EOMI, conjunctiva normal, no discharge. [] Neck: Normal range of motion, no tenderness, supple, no stridor. [] Cardiovascular:Heart rate regular rhythm, no murmur [] Lungs & Thorax: Bilateral breath sounds clear to auscultation [] Abdomen: Bowel sounds normal, soft, no tenderness, no masses, no pulsatile masses. [] Skin: Warm, dry, no erythema, no rash. [] Back: No tenderness, no CVA tenderness. [] Extremities: No tenderness, no cyanosis, no clubbing, ROM intact, no edema. [] Neurologic: Alert and oriented X 3, normal motor function, normal sensory function, no focal deficits noted. [] Psychologic: Affect normal, judgement normal, mood normal. [] EKG: EKG: [] Radiology/Procedures: Radiology/Procedures: [] Course & Med Decision Making: Course & Med Decision Making Pertinent Labs and Imaging studies reviewed. (See chart for details) [] Patient is a well-appearing 29-year-old female presents with chief complaint of congestion mild sore throat. Initial vital signs unremarkable. Based on patient's signs and symptoms she likely has upper respiratory illness. Lungs are clear to auscultation. Patient is declining chest x-ray at this time. COVID swab was obtained and is pending. All questions and concerns were addressed. She will be discharged home with Rebecca and Flonase. She was instructed to follow-up with her primary care physician in the next 2 to 3 days. Stable for discharge home. COVID-19 CRITERIA: The patient was evaluated during the global COVID-19 pandemic, and that diagnosis was suspected/considered upon their initial presentation. Their evaluation, treatment and testing was consistent with current guidelines for patients who present with complaints or symptoms that may be related to COVID-19. Dragon Disclaimer: Dragon Disclaimer: This electronic medical record was generated, in whole or in part, using a voice recognition dictation system. Departure Departure: Impression: Primary Impression: Nasal congestion Disposition: 01 HOME/RESIDENCE PRIOR TO ADM Condition: STABLE Referrals: AKASH SCHMITT MD (PCP) Additional Instructions: You have been tested for or diagnosed with COVID-19. It is an infection caused by a new type of coronavirus. COVID-19 will cause cold-like or mild flu symptoms in most. It can cause more severe symptoms like problems breathing in some. There is no treatment for COVID-19. The body will clear the infection over time. Self-care will help to ease discomfort. Steps to Take: Self-Care Rest as needed. Healthy habits may help you feel better. Steps include: Choose healthy foods including fruits and vegetables. Drink water throughout the day. Get plenty of sleep each night. If you smoke, try to quit. It may ease breathing. Avoid alcohol. Keep Others Healthy The virus can spread to others. Droplets are released every time you sneeze or cough. The droplets can get into the mouth, nose, or eyes of people near you and lead to infection. To lower the chances of spreading COVID-19 to others: Stay at home until your doctor has said it is safe to leave. If you tested posi tive this will mean staying isolated until both of the following are true: At least 7 days have passed since the start of illness. You are free of fever for at least 72 hours without the use of medicine. During this time: - Avoid public areas, events, or transportation. Do not return to work or school until your doctor has said it is safe to do so. - Call ahead if you need to go to a medical center. Let them know you may have COVID-19. It will help them guide you where to go. They may also ask you to wear a facemask when you come to the office. - If you call for emergency medical services, let them know you may have COVID- 19. While at home: - Try to avoid close contact with others. Stay about 6 feet away. - If possible, spend most of your time in a separate room from others. - Use a face mask if you will be in close contact with others such as sharing a room or vehicle. - Have someone wipe down common surfaces in the home. Use household field laboratory operator every day on areas like doorknobs, counters, or sinks. - Cough or sneeze into a tissue. Throw the tissue away right after use. If a tissue is not available, cough or sneeze into your elbow. - Wash your hands often. Wash them after sneezing or coughing. Use soap and water and wash for at least 20 seconds. Alcohol based hand truck car and bus cleaner can be used if soap and water is not available. - Do not prepare food for others. Avoid sharing personal items like forks, spoons, or toothbrushes. - Avoid close contact with pets while you are sick. There is no evidence of the virus passing to pets. This is a safety step until more is known about this virus. Isolation can be frustrating. Social interaction can help. Keep in touch with friends and family through phone and tech options. You can still interact with others in your home, just keep a safe distance of about 6 feet. Follow-up: Your doctors office will check in with you to see if there are any changes in your health. You may be asked to keep track of symptoms to share with them. They will also let you know when you are clear to be in public again. Problems to Look Out For: Contact your doctor if your recovery is not going as you expect. Get emergency care if you have problems such as: - Trouble breathing - Nonstop chest pain or pressure - Changes in awareness, confusion, or problems waking - Lips or face have bluish color - Worsening of symptoms If you think you have an emergency, call for emergency medical services right away. As taken from [facility] Script[facility] Fluticasone Propionate (Flonase Allergy Relief) 9.9 Ml [place].susp 2 SPRAYS NS DAILY for congestion for 30 Days, #1 BOTTLE Prov: VIKKI REBOLLEDO DO 05/10/20 Fexofenadine Hcl (REBECCA ALLERGY) 60 Mg Tablet 1 TAB PO BID for allergy symptoms for 14 Days, #28 TAB 0 Refills Prov: VIKKI REBOLLEDO DO 05/10/20 Justification of Admission: Justification of Admission: Justification of Admission Dx: N/A VIKKI REBOLLEDO DO May 10, 2020 20:39
--- NOTE | 2020-05-13 08:05 | NUR ---
IP: patient notified of COVID result.
== END 2020-05-10 21:05 | disposition home or self-care (01) ==
LOC: ER 19:47
DX: R09.81 Nasal congestion (principal); J02.9 Acute pharyngitis, unspecified; Z20.828 Contact with and (suspected) exposure to other viral communicable diseases; Z88.7 Allergy status to serum and vaccine
CPT/HCPCS: 99283; U0003

== ENCOUNTER 2021-05-18 09:45 | Emergency (ER) | payer OTHER ==
[~2021-05-18] VITALS: Ht 157.5 cm; Wt 67.3 kg
[~2021-05-18 09:45] MED LIST changes: +FEXO60TA25 PO; +FLUT9.9S NS
--- NOTE | 2021-05-18 10:24 | PHYS DOC ---
Past History Past Medical History: Cancer, Other Additional Past Medical Histor: left renal mass Past Surgical History: Cancer Surgery, Cholecystectomy Alcohol Use: Rarely Drug Use: None General Adult EDM: Chief Complaint: HEADACHE HPI: HPI: 30-year-old female patient presents to the emergency department complaining of right-sided weakness, left-sided headache that was sudden onset around 730 this morning. She reports her headache is located in the left side of her head near her spiritism, associated with some vision changes in the left field of vision. She reports this morning around 730 she also experienced some blurriness in the left field of vision was associated with a headache. She reports her symptoms are improving but she still feels some numbness in the right hand and arm as well as some weakness in the right upper extremity. She denies any further facial changes. She has never had headaches before and never had symptoms like this in the past. She does not take any blood thinning medications. She has an IUD in place. The patient denies nausea, vomiting, fever, chills, chest pain, shortness of breath, abdominal pain, urinary symptoms, cough, recent trauma, or any other complaints. Review of Systems: Review of Systems: Constitutional: Denies fever or chills. Eyes: Reports change in vision, denies eye pain. HENT: Denies congestion or sore throat. Respiratory: Denies cough or shortness of breath. Cardiovascular: Denies chest pain or edema. GI: Denies abdominal pain, nausea. : Denies change in urination, dysuria. Musculoskeletal: Denies extremity pain, or trauma. Skin: Denies rash, skin change. Neurologic: Admits to headache, admits to right-sided weakness and numbness in upper extremity. Psychiatric: Denies depression or anxiety. All other systems reviewed as negative except for what was mentioned in the HPI. Family History: Family History: Noncontributory Allergies: Allergies: Allergies Coded Allergies Type Severity Reaction Last Updated Verified measles, mumps, rubella,and varicel Allergy Severe 06/24/18 Yes Physical Exam: PE: General: Alert and oriented, No acute distress. Eye: Pupils are equal, round and reactive to light, Extraocular movements are intact, Normal conjunctiva. HEENT: Oral mucosa is moist, Normocephalic, Atraumatic. Tenderness to left side of scalp, no sign of trauma. Neck: Supple, Non-tender. Respiratory: Respirations are non-labored, Breath sounds are equal. Cardiovascular: Normal rate, Good pulses equal in all extremities, Normal peripheral perfusion. Capillary refill: Less than 2 seconds. Integumentary: Warm, Dry, Intact, No pallor. Neurologic: Orientation: The patient is alert and oriented to person, place, time, and situation. Following commands, speech is fluent, intact comprehension. Cranial Nerves: 2nd: normal; Visual castaneda are full to confrontation. Pupils are equal, round and reactive to light and accommodation. 3rd, 4th & 6th: Extraocular movements are intact without nystagmus. Patient does have to tilt her head to perform the exam on the left 5th: normal; intact muscles of mastication. Intact to light touch. 7th: normal; no facial asymmetry 8th: normal 9th and 10th: normal; Uvula midline. 11th: normal; Shoulder shrug is symmetric 12th: normal; tongue is midline. Strength: Motor strength is 4/5 in the right upper extremity in biceps, triceps. Left side is 5/5. Lower extremities are 5/5 bilaterally and equal. Sensory: Patient complains of right 3 through 5 finger numbness along with forearm numbness on the right. Left within normal limits Coordination is intact [id number], fine finger movements, rapidly alternating movements, heel to karimi. Gait is normal and stable without ataxia. Psychiatric: Cooperative, Appropriate mood & affect. Current Patient Data: Labs: Laboratory Tests Test 05/18/21 10:20 05/18/21 10:25 05/18/21 11:02 White Blood Count 5.3 x10^3/uL (4.0-11.0) Red Blood Count 3.97 x10^6/uL (3.50-5.40) Hemoglobin 13.6 g/dL (12.0-15.5) Hematocrit 40.0 % (36.0-47.0) Mean Corpuscular Volume 101 fL (79-100) H Mean Corpuscular Hemoglobin 34 pg (25-35) Mean Corpuscular Hemoglobin Concent 34 g/dL (31-37) Red Cell Distribution Width 12.3 % (11.5-14.5) Platelet Count 243 x10^3/uL (140-400) Neutrophils (%) (Auto) 59 % (31-73) Lymphocytes (%) (Auto) 30 % (24-48) Monocytes (%) (Auto) 11 % (0-9) H Eosinophils (%) (Auto) 0 % (0-3) Basophils (%) (Auto) 0 % (0-3) Neutrophils # (Auto) 3.1 x10^3uL (1.8-7.7) Lymphocytes # (Auto) 1.6 x10^3/uL (1.0-4.8) Monocytes # (Auto) 0.6 x10^3/uL (0.0-1.1) Eosinophils # (Auto) 0.0 x10^3/uL (0.0-0.7) Basophils # (Auto) 0.0 x10^3/uL (0.0-0.2) Erythrocyte Sedimentation Rate 3 (0-25) Sodium Level 141 mmol/L (136-145) Potassium Level 3.8 mmol/L (3.5-5.1) Chloride Level 103 mmol/L (98-107) Carbon Dioxide Level 27 mmol/L (21-32) Anion Gap 11 (6-14) Blood Urea Nitrogen 7 mg/dL (7-20) Creatinine 0.7 mg/dL (0.6-1.0) Estimated GFR (Cockcroft-Gault) 98.9 Glucose Level 79 mg/dL (70-99) Calcium Level 8.9 mg/dL (8.5-10.1) C-Reactive Protein < 0.5 mg/L (0-3.3) Glucose (Fingerstick) 77 mg/dL (70-99) POC Urine HCG, Qualitative hcg negative (Negative) Vital Signs: Vital Signs Date Time Temp Pulse Resp B/P (MAP) Pulse Ox O2 Delivery O2 Flow Rate FiO2 05/18/21 12:00 82 20 125/81 (96) 100 Room Air 05/18/21 11:30 87 20 130/81 (97) 96 Room Air 05/18/21 11:00 67 20 114/59 (77) 99 Room Air 05/18/21 10:45 70 20 112/68 (83) 100 Room Air 05/18/21 10:30 67 20 108/76 (87) 100 Room Air 05/18/21 10:15 83 20 126/66 (86) 99 Room Air 05/18/21 10:00 98.2 64 20 120/70 (87) 100 Room Air EKG: EKG: Time read: 10:26 AM Normal sinus rhythm rate of 70, no ST-T wave changes, no ectopic beats, normal axis, normal MN, QRS, and QTc intervals. Impression: Normal EKG. interpreted by meCleopatra D.O. Radiology/Procedures: Radiology/Procedures: CTA HEAD AND NECK W/WO CONTRAST History: Right-sided weakness Technique: After bolus of intravenous contrast, volumetric CT data acquisition was acquired of the head and neck. Multiplanar reconstruction images to include MIP and 3-D reconstruction images are submitted. Any determination of stenosis is based on NASCET criteria. Comparison: CT head 05/18/2021, CT head and neck 03/31/2020 Findings: Angiogram neck: Aortic arch: Normal caliber three-vessel arch. Common carotid arteries: No stenosis, occlusion or dissection. Internal carotid arteries: No stenosis, occlusion or dissection. External carotid arteries: Patent Vertebral arteries: No stenosis, occlusion or dissection. Angiogram head: ICA: No stenosis, occlusion or aneurysm. MCA: No stenosis, occlusion or aneurysm. ISAK: No stenosis, occlusion or aneurysm. VENDING MACHINE COLLECTOR: No stenosis, occlusion or aneurysm. configuration of the left VENDING MACHINE COLLECTOR. Basilar artery: No stenosis, occlusion or aneurysm. Distal vertebral arteries: No stenosis, occlusion or aneurysm. Nondominant left vertebral artery terminates as PICA. Other: 3 mm fissural nodule in the right upper lung is most consistent with benign fissural lymph node. Soft tissues appear normal. No pathologic osseous lesions. Impression: 1. No arterial stenosis or occlusion within the head or neck. Findings discussed with Dr. Patterson at 05/18/2021 CT head without contrast 05/18/2021 10:35 AM INDICATION: Right-sided weakness COMPARISON: 02/20/2018 TECHNIQUE: Multiple axial CT images of the head were obtained from skull base through the vertex without intravenous contrast. FINDINGS: Head: Ventricles, sulci and basal cisterns are within normal limits. There is no hydrocephalus. Colon-white matter differentiation is normal. There is no acute intracranial hemorrhage. There is no mass, mass effect or midline shift. Posterior fossa is normal in appearance. Circumscribed hypodensity in inferior left basal ganglia measuring 7 mm cyst favors a dilated perivascular space, stable. Mild crowding of the medulla by the cerebellar tonsils at the level of the foramen magnum.. Visualized portions of the orbits are normal. Paranasal sinuses are well aerated. Mastoid air cells are well aerated. Scalp and calvaria are normal. IMPRESSION: No acute intracranial hemorrhage. Heart Score: C/O Chest Pain: No Course & Med Decision Making: Course & Med Decision Making Upon reassessment after medications as below, the patient is feeling much aniya r, her headache is resolved, her numbness and weakness have also resolved. Her repeat neuro exam shows 5/5 motor strength in the right upper extremity, bilateral equal sensory distributions, no tenderness of scalp. Her ESR is negative, her CT and CTA are negative. She has no sign of stroke. Her presentation is likely consistent with a complex migraine. I advised return precautions and she is amenable to discharge at this time My Orders - CLEOPATRA PATTERSON DO Procedure Category Date Status Time Cbc W Autod[employer] LAB 05/18/21 Complete 10:15 Basic Metabolic Panel LAB 05/18/21 Complete 10:15 Sedimentation Rate LAB 05/18/21 Complete 10:15 C Reactive Protein LAB 05/18/21 Complete 10:[address] [facility] 05/18/21 In Process 10:[address] 05/18/21 Resulted And Neck 10:16 12 Lead Ekg EKG 05/18/21 Complete 10:23 Ct Code Stroke Head Wo CT 05/18/21 Resulted 10:15 Prochlorperazine PHA 05/18/21 Complete (Compazine) 11:30 Diphenhydramine PHA 05/18/21 Complete (Benadryl) 11:30 Ketorolac 15mg Vial PHA 05/18/21 Complete (Toradol 15mg Vial) 11:30 Iv Normal Saline PHA 05/18/21 Complete 1,000ml (Iv Sodium 11:30 Departure Departure: Impression: Primary Impression: Migraine headache Disposition: HOME / SELF CARE / HOMELESS Condition: IMPROVED Referrals: AKASH SCHMITT MD (PCP) Patient Instructions: Migraine Headache, [id number] Additional Instructions: You were seen in the Emergency Department for headache. Please drink plenty of fluids -- at least 6-8 glasses of water per day. Dehyd ration can often precipitate headaches. Avoid alcohol and sugary or caffeinated beverages. Return to the Emergency Department, day or night, if you develop recurrent or worsening headache, vision changes, difficulty eating or drinking due to nausea or vomiting, weakness or numbness in the limbs, difficulty walking or fever. CLEOPATRA PATTERSON DO May 18, 2021 10:24
[2021-05-18] MEDS ORDERED: IOHEXOL 350 MG/ML 100 ML VIAL. IV ONE ×2 (10:30)
--- NOTE | 2021-05-18 10:31 | EKG ---
[address] [address] Test Date: 2021-05-18 Test Time: 10:21:28 Pat Name: FORREST CHRISTIANSON Department: Room: Gender: F Dna Sequencing Associate: LARRY : 1990 Requested By: CLEOPATRA ROBERTSON Order Number: [id number] Reading MD: Measurements Intervals Britt Rate: 70 P: 33 OK: 184 QRS: 21 QRSD: 86 T: 30 QT: 360 QTc: 391 Interpretive Statements SINUS RHYTHM NORMAL ECG RI6.02 No previous ECG available for comparison
--- NOTE | 2021-05-18 10:43 | RAD ---
RS Compliance Statement: One or more of the following individualized dose reduction techniques were utilized for this examinat ion: 1. Automated exposure control 2. Adjustment of the mA and/or kV according to patient size 3. Use of iterative reconstruction technique CT head without contrast 05/18/2021 10:35 AM INDICATION: Right-sided weakness COMPARISON: 02/20/2018 TECHNIQUE: Multiple axial CT images of the head were obtained from skull base through the vertex with out intravenous contrast. FINDINGS: Head: Ventricles, sulci and basal cisterns are within normal limits. There is no hydrocephalus. Colon-white matter differentiation is normal. There is no acute intracranial hemorrhage. There is no mass, mass e ffect or midline shift. Posterior fossa is normal in appearance. Circumscribed hypodensity in inferio r left basal ganglia measuring 7 mm cyst favors a dilated perivascular space, stable. Mild crowding o f the medulla by the cerebellar tonsils at the level of the foramen magnum.. Visualized portions of the orbits are normal. Paranasal sinuses are well aerated. Mastoid air cells a re well aerated. Scalp and calvaria are normal. IMPRESSION: No acute intracranial hemorrhage. There is mild crowding of the medulla by the cerebellar tonsils at the level of the foramen magnum. C onsideration could be given for a Chiari malformation. Findings are stable. FOR INTERNAL CODING PURPOSES Critical result: Findings discussed with Dr. Patterson at 05/18/2021 10:35 AM. RESULT CODE: (C) Electronically signed by: Sandrine Kaufman MD (05/18/2021 10:41 AM) [id number]
[2021-05-18 10:56] LABS: ANION GAP 11 (6-14); BASO % 0 % (0-3); BLOOD UREA NITROGEN 7 mg/dL (7-20); CALCIUM 8.9 mg/dL (8.5-10.1); CARBON DIOXIDE 27 mmol/L (21-32); CHLORIDE 103 mmol/L (98-107); CREATININE 0.7 mg/dL (0.6-1.0); EOS % 0 % (0-3); GFR 98.9; GLUCOSE 79 mg/dL (70-99); HEMOGLOBIN 13.6 g/dL (12.0-15.5); LYMPH # 1.6 x10^3/uL (1.0-4.8); LYMPH % 30 % (24-48); MEAN CORPUSCULAR HEMOGLOBIN 34 pg (25-35); MEAN CORPUSCULAR HGB CONC 34 g/dL (31-37); MEAN CORPUSCULAR VOLUME 101 fL (79-100); MONO # 0.6 x10^3/uL (0.0-1.1); MONO % 11 % (0-9); NEUT # 3.1 x10^3uL (1.8-7.7); NEUT % 59 % (31-73); PLATELET COUNT 243 x10^3/uL (140-400); POTASSIUM 3.8 mmol/L (3.5-5.1); RED BLOOD COUNT 3.97 x10^6/uL (3.50-5.40); RED CELL DISTRIBUTION WIDTH 12.3 % (11.5-14.5); SODIUM 141 mmol/L (136-145); WHITE BLOOD COUNT 5.3 x10^3/uL (4.0-11.0)
--- NOTE | 2021-05-18 10:59 | RAD ---
CTA HEAD AND NECK W/WO CONTRAST History: Right-sided weakness Technique: After bolus of intravenous contrast, volumetric CT data acquisition was acquired of the he ad and neck. Multiplanar reconstruction images to include MIP and 3-D reconstruction images are submi tted. Any determination of stenosis is based on NASCET criteria. Comparison: CT head 05/18/2021, CT head and neck 03/31/2020 Findings: Angiogram neck: Aortic arch: Normal caliber three-vessel arch. Common carotid arteries: No stenosis, occlusion or dissection. Internal carotid arteries: No stenosis, occlusion or dissection. External carotid arteries: Patent Vertebral arteries: No stenosis, occlusion or dissection. Angiogram head: ICA: No stenosis, occlusion or aneurysm. MCA: No stenosis, occlusion or aneurysm. ISAK: No stenosis, occlusion or aneurysm. ELEMENT WINDING MACHINE TENDER: No stenosis, occlusion or aneurysm. configuration of the left ELEMENT WINDING MACHINE TENDER. Basilar artery: No stenosis, occlusion or aneurysm. Distal vertebral arteries: No stenosis, occlusion or aneurysm. Nondominant left vertebral artery term inates as PICA. Other: 3 mm fissural nodule in the right upper lung is most consistent with benign fissural lymph node. Soft tissues appear normal. No pathologic osseous lesions. Impression: 1. No arterial stenosis or occlusion within the head or neck. Findings discussed with Dr. Patterson at 05/18/2021 10:55 AM. FOR INTERNAL CODING PURPOSES RESULT CODE: (C) Exposure: One or more of the following individualized dose reduction techniques were utilized for thi s examination: 1. Automated exposure control 2. Adjustment of the mA and/or kV according to patient size 3. Use of iterative reconstruction technique. Electronically signed by: Ezekiel Camarillo MD (05/18/2021 10:57 AM) [id number]
[2021-05-18 11:02] LABS: C REACTIVE PROTEIN < 0.5 mg/L (0-3.3)
[2021-05-18] MEDS ORDERED: KETOROLAC 15 MG/ML VIAL. IVP ONE (11:30)
[2021-05-18] MEDS ORDERED: PROCHLORPERAZINE 10 MG/2 ML VIAL. IV ONE (11:30)
[2021-05-18] MEDS ORDERED: IV NORMAL SALINE 1,000ML 1,000 ML IV ONE (11:30)
[2021-05-18] MEDS ORDERED: diphenhydrAMINE 50 MG/ML VIAL IVP ONE (11:30)
[2021-05-18 12:17] LABS: SEDIMENTATION RATE 3 (0-25)
[2021-05-18 12:45] VITALS: BP 125/71
== END 2021-05-18 12:57 | disposition home or self-care (01) ==
LOC: ER 09:45
DX: G43.909 Migraine, unspecified, not intractable, without status migrainosus (principal); Z88.7 Allergy status to serum and vaccine
CPT/HCPCS: 36415; 70450; 70496; 70498; 80048; 81025; 82947; 85025; 85651; 86140; 93005; 96361; 96374; 96375; 99285; J0780; J1200; J1885; J7030; Q9967

== ENCOUNTER 2021-07-28 09:42 | Emergency (ER) | payer OTHER ==
[~2021-07-28] VITALS: Ht 157.5 cm; Wt 65.8 kg
[~2021-07-28 09:42] MED LIST changes: -CYCL-331 PO; +CYCL10TA19 PO
[2021-07-28] MEDS ORDERED: ONDANSETRON PF 4 MG/2 ML VIAL. IVP ONE (10:30)
[2021-07-28] MEDS ORDERED: IV NORMAL SALINE 1,000ML 1,000 ML IV ONE (10:30)
[2021-07-28] MEDS ORDERED: KETOROLAC 30 MG/ML VIAL. IVP ONE (10:30)
[2021-07-28 10:41] LABS: BASO % 0 % (0-3); EOS % 0 % (0-3); HEMATOCRIT 46.4 % (36.0-47.0); HEMOGLOBIN 15.6 g/dL (12.0-15.5); LYMPH # 0.6 x10^3/uL (1.0-4.8); LYMPH % 5 % (24-48); MEAN CORPUSCULAR HEMOGLOBIN 34 pg (25-35); MEAN CORPUSCULAR HGB CONC 34 g/dL (31-37); MEAN CORPUSCULAR VOLUME 101 fL (79-100); MONO # 0.8 x10^3/uL (0.0-1.1); MONO % 7 % (0-9); NEUT # 10.1 x10^3uL (1.8-7.7); NEUT % 88 % (31-73); PLATELET COUNT 237 x10^3/uL (140-400); RED BLOOD COUNT 4.58 x10^6/uL (3.50-5.40); RED CELL DISTRIBUTION WIDTH 13.1 % (11.5-14.5); WHITE BLOOD COUNT 11.5 x10^3/uL (4.0-11.0)
[2021-07-28 10:47] LABS: CALCIUM 8.7 mg/dL (8.5-10.1); CREATININE 0.8 mg/dL (0.6-1.0); GFR 84.2; POTASSIUM 3.9 mmol/L (3.5-5.1)
[2021-07-28 10:53] LABS: ALBUMIN 4.5 g/dL (3.4-5.0); ALBUMIN/GLOBULIN RATIO 1.3 (1.0-1.7); TOTAL BILIRUBIN 0.6 mg/dL (0.2-1.0)
[2021-07-28 11:15] LABS: BACTERIA,URINE FEW /HPF (0-FEW); BILIRUBIN,URINE NEG (NEG); CLARITY,URINE HAZY; COLOR,URINE YELLOW; GLUCOSE,URINE NEG (NEG); NITRITE,URINE NEG (NEG); SQUAMOUS EPITHELIAL CELL,UR MANY /LPF; UROBILINOGEN,URINE 0.2 mg/dL (0.2 mg/dL)
[2021-07-28] MEDS ORDERED: PROCHLORPERAZINE 10 MG/2 ML VIAL. IV ONE (11:15)
[2021-07-28] MEDS ORDERED: LORazepam 1 MG TABLET PO ONE (12:30)
--- NOTE | 2021-07-28 12:43 | PHYS DOC ---
Past History Past Medical History: Cancer, Other Additional Past Medical Histor: left renal mass (MIKE RODRÍGUEZ APRN) Past Surgical History: Cholecystectomy, Other Additional Past Surgical Histo: LEFT KIDNEY (MIKE RODRÍGUEZ APRN) Alcohol Use: Rarely Drug Use: None (MIKE RODRÍGUEZ APRN) Adult General Chief Complaint Chief Complaint: ABDOMINAL PAIN HPI HPI Patient is a 31-year-old female who presents emergency department concerning nausea vomiting with diarrhea that started last night. Patient reports 2 nights ago taken her stepson to the emergency department for similar symptoms in which she was diagnosed with a stomach virus. Patient reports that both she and her have come down with the same symptoms. Patient reports she had leftover Zofran antinausea medication at home that did not help, patient reports vomiting yellowish liquid today several times, reports several bouts of loose stool, denies seeing blood in her urine or in her stool. Patient denies increased urinary frequency, urinary burning, urinary pressure. Patient reports generalized abdominal discomfort. Denies recent fever or chills, denies chest pains or shortness of breath. Denies other physical complaints or physical concerns. (MIKE RODRÍGUEZ APRN) Review of Systems Review of Systems 14 body systems of review of systems have been reviewed. See HPI for pertinent positives and negative responses, otherwise all other systems are negative, nonpertinent or noncontributory. Constitutional: Negative except as outlined in HPI above. Skin: Negative except as outlined in HPI above. Eyes: Negative except as outlined in HPI above. HENT: Negative except as outlined in HPI above. Respiratory: Negative except as outlined in HPI above. Cardiovascular: Negative except as outlined in HPI above. GI: Negative except as outlined in HPI above. : Negative except as outlined in HPI above. Musculoskeletal: Negative except as outlined in HPI above. Integument: Negative except as outlined in HPI above. Neurologic: Negative except as outlined in HPI above. Endocrine: Negative except as outlined in HPI above. Lymphatic: Negative except as outlined in HPI above. Psychiatric: Negative except as outlined in HPI above. (MIKE RODRÍGUEZ APRN) Current Medications Current Medications Current Medications Medications (Trade) Dose Ordered Sig/Jessica Start Time Stop Time Status Last Admin Dose Admin Ketorolac Tromethamine (Toradol 30mg Vial) 30 mg 1X ONCE 07/28/21 10:30 07/28/21 10:31 DC 12/2/21 10:40 30 MG Lorazepam (Ativan) 1 mg 1X ONCE 07/28/21 12:30 07/28/21 12:31 UNV Ondansetron HCl (Zofran) 4 mg 1X ONCE 07/28/21 10:30 07/28/21 10:31 DC 07/28/21 10:39 4 MG Prochlorperazine Edisylate (Compazine) 10 mg 1X ONCE 07/28/21 11:15 07/28/21 11:16 DC 07/28/21 11:32 10 MG Sodium Chloride 1,000 ml @ 1,000 mls/hr 1X ONCE 07/28/21 10:30 07/28/21 11:29 DC 07/28/21 10:38 1,000 MLS/HR (MIKE RODRÍGUEZ APRN) Allergies Allergies Allergies Coded Allergies Type Severity Reaction Last Updated Verified measles, mumps, rubella,and varicel Allergy Severe 06/24/18 Yes (MIKE RODRÍGUEZ APRN) Physical Exam Physical Exam Constitutional: Well developed, well nourished, no acute distress, non-toxic appearance. 31-year-old female in no apparent distress. HENT: Normocephalic, atraumatic. Eyes: Conjunctiva normal, no discharge. Neck: Normal range of motion, no stridor. Cardiovascular: No cyanosis appreciated, distal cap refill less than 2 seconds. Lungs & Thorax: Patient is in no respiratory distress, no audible adventitious lung sounds appreciated. Abdomen: Generalized abdominal tenderness to palpation, no McBurney's point tenderness, negative rebound tenderness, negative Benitez sign, negative psoas sign, no abnormalities noted. Skin: Warm, dry, no erythema, no rash. Back: No tenderness, no deformities. Extremities: No tenderness, no cyanosis, no clubbing, ROM intact, no edema. Neurologic: Alert and oriented X 3, normal motor function, normal sensory function, no focal deficits noted. Psychologic: Affect normal, judgement normal, mood normal. (MIKE RODRÍGUEZ APRN) Current Patient Data Lab Results Laboratory Tests Test 07/28/21 10:05 07/28/21 10:08 07/28/21 10:15 Urine Collection Type Unknown Urine Color Yellow Urine Clarity Hazy Urine pH 5.0 Urine Specific [place] 1.025 Urine Protein Neg (NEG-TRACE) Urine Glucose (UA) Neg mg/dL (NEG) Urine Ketones (Stick) Neg mg/dL (NEG) Urine Blood Neg (NEG) Urine Nitrite Neg (NEG) Urine Bilirubin Neg (NEG) Urine Urobilinogen Dipstick 0.2 mg/dL (0.2 mg/dL) Urine Leukocyte Esterase Neg (NEG) Urine RBC 3-5 /HPF (0-2) Urine WBC 1-4 /HPF (0-4) Urine Squamous Epithelial Cells Many /LPF Urine Bacteria Few /HPF (0-FEW) Urine Mucus Marked /LPF POC Urine HCG, Qualitative hcg negative (Negative) White Blood Count 11.5 x10^3/uL (4.0-11.0) H Red Blood Count 4.58 x10^6/uL (3.50-5.40) Hemoglobin 15.6 g/dL (12.0-15.5) H Hematocrit 46.4 % (36.0-47.0) Mean Corpuscular Volume 101 fL (79-100) H Mean Corpuscular Hemoglobin 34 pg (25-35) Mean Corpuscular Hemoglobin Concent 34 g/dL (31-37) Red Cell Distribution Width 13.1 % (11.5-14.5) Platelet Count 237 x10^3/uL (140-400) Neutrophils (%) (Auto) 88 % (31-73) H Lymphocytes (%) (Auto) 5 % (24-48) L Monocytes (%) (Auto) 7 % (0-9) Eosinophils (%) (Auto) 0 % (0-3) Basophils (%) (Auto) 0 % (0-3) Neutrophils # (Auto) 10.1 x10^3uL (1.8-7.7) H Lymphocytes # (Auto) 0.6 x10^3/uL (1.0-4.8) L Monocytes # (Auto) 0.8 x10^3/uL (0.0-1.1) Eosinophils # (Auto) 0.0 x10^3/uL (0.0-0.7) Basophils # (Auto) 0.0 x10^3/uL (0.0-0.2) Sodium Level 139 mmol/L (136-145) Potassium Level 3.9 mmol/L (3.5-5.1) Chloride Level 105 mmol/L (98-107) Carbon Dioxide Level 27 mmol/L (21-32) Anion Gap 7 (6-14) Blood Urea Nitrogen 15 mg/dL (7-20) Creatinine 0.8 mg/dL (0.6-1.0) Estimated GFR (Cockcroft-Gault) 84.2 BUN/Creatinine Ratio 19 (6-20) Glucose Level 108 mg/dL (70-99) H Calcium Level 8.7 mg/dL (8.5-10.1) Total Bilirubin 0.6 mg/dL (0.2-1.0) Aspartate Amino Transferase (AST) 34 U/L (15-37) Alanine Aminotransferase (ALT) 52 U/L (14-59) Alkaline Phosphatase 52 U/L (46-116) Total Protein 8.0 g/dL (6.4-8.2) Albumin 4.5 g/dL (3.4-5.0) Albumin/Globulin Ratio 1.3 (1.0-1.7) Lipase 92 U/L (73-393) (MIKE RODRÍGUEZ APRN) EKG EKG [] (MIKE RODRÍGUEZ APRN) Radiology/Procedures Radiology/Procedures [] (MIKE RODRÍGUEZ APRN) Heart Score C/O Chest Pain: No Risk Factors: Risk Factors: DM, Current or recent (<one month) smoker, HTN, HLP, family history of CAD, obesity. Risk Scores: Risk Factors: DM, Current or recent (<one month) smoker, HTN, HLP, family history of CAD, obesity. (MIEK RODRÍGUEZ APRN) Course & Med Decision Making Course & Med Decision Making Pertinent Labs and Imaging studies reviewed. (See chart for details) 31-year-old female, vital signs reviewed, presents emergency department with concerns she may have contacted the stomach virus her stepson had from 2 days ago. Physical examination consistent with gastroenteritis. Most likely a viral component related to other family members with similar symptoms. Will order CBC, CMP, lipase, urinalysis assay, urine test. 1 L normal saline, 4 mg IV Zofran, 30 mg Toradol. After period of time, upon reevaluation of the patient, patient reports Zofran not working that well, offered Reglan, patient reports anxiety attacks with Reglan, offered Compazine, patient is amenable to IV Compazine. 10 mg IV Compazine ordered for nausea. Upon reevaluation of the patient, patient reports all symptoms have resolved however patient feels she is now having anxiety attack related to the Compazine injection, will order 1 mg Ativan, patient does feel as if she could go home at this time as her nausea, vomiting, diarrhea, and abdominal pain symptoms have resolved, there was no bouts of diarrhea or vomiting during her ER stay. Discussed with patient staying well-hydrated, follow-up with primary care physician soon for reevaluation, return ER precautions or concerns. Patient gave verbal understanding of and is amenable to ED discharge planning. Discussed with the patient all findings and diagnostic testing as well as the need to follow-up with their primary care provider for further evaluation and treatment or return to the ED if any new or worsening symptoms. Strict return precautions were also discussed at length, the patient voiced understanding and agreement with the discharge planning. The patient was nontoxic in appearance, in no apparent distress, and hemodynamically stable at the time of disposition. (MIKE RODRÍGUEZ APRN) Dragon Disclaimer Dragon Disclaimer This electronic medical record was generated, in whole or in part, using a voice recognition dictation system. (MIKE RODRÍGUEZ APRN) Departure Departure: Impression: Primary Impression: Gastroenteritis Disposition: 01 HOME / SELF CARE / HOMELESS Condition: GOOD Referrals: AKASH SCHMITT MD (PCP) Patient Instructions: Viral Gastroenteritis Additional Instructions: You are seen today in the emergency department for nausea, vomiting, diarrhea. You had reported your stepson had similar symptoms 2 days ago. Your presentation is very similar, you were given IV Zofran, 1 L normal saline, IV Compazine, 30 mg of Toradol IV for pain. He had reported some anxiety after receiving the Compazine injection, he was given 1 mg of Ativan tablet for this anxiety presentation. Your lab work did not indicate any abnormalities that would req uire hospital admission, your urine was not infected, you are not . You had indicated your symptoms have otherwise resolved. Please continue to drink plenty of fluids at home. Follow-up with Dr. Schmitt for ongoing symptoms. Return to the emergency department for worsening symptoms or other concerns. Thank you for visiting our Emergency Department. It was a pleasure taking care of you today in the emergency department and we appreciate you trusting us with your care. If any additional problems come up don't hesitate to return to visit us. Please follow up with your primary care provider so they can plan additional care if needed and know about the problem that you had. If symptoms worsen come back to the Emergency Department. Any concerning symptoms that start such as chest pain, shortness of air, weakness or numbness on one side of the body, running high fevers or any other concerning symptoms return to the ER. EMERGENCY DEPARTMENT GENERAL DISCHARGE INSTRUCTIONS Thank you for coming to [facility] (ED) today and trusting us with you care. We trust that you had a positivie experience in our Emergency Department. If you wish to speak to the department management, you may call the director at [phone]. YOUR FOLLOW UP INSTRUCTIONS ARE FOLLOWS: 1. Do you have a private Doctor? If you do not have a private doctor, please ask for a resource list of physicians or clinics that may be able to assist you with follow up care. 2. The Emergency Physician has interpreted your x-rays. The X-Ray specialist will also review them. If there is a change in the findings, you will be notified in 48 hours when at all possible. 3. A lab test or culture has been done, your results will be reviewed and you will be notified if you need a change in treatment. ADDITIONAL INSTRUCTIONS AND INFORMATION: 1. Your care today has been supervised by a physician who is specially trained in emergency care. Many problems require more than one evaluation for a complete diagnosis and treatment. We recommend that you schedule your follow up appointment as recommended to ensure complete treatment of you illness or injury. If you are unable to obtain follow up care and continue to have a problem, or if your condition worsens, we recommend that you return to the ED. 2. We are not able to safely determine your condition over the phone nor are we able to give sound medical advice over the phone. For these safety reasons, if you call for medical advice we will ask you to come to the ED for further evaluation. 3. If you have any questions regarding these discharge instructions please call the ED at [phone]. SAFETY INFORMATION: In the interest of safety, wellness, and injury prevention; we encourage you to wear your sealbelt, if you smoke; quite smoking, and we encourage family to use a protective helmet for bicycling and other sporting events that present an increased risk for head injury. IF YOUR SYMPTOMS WORSEN OR NEW SYMPTOMS DEVELOP, OR YOU HAVE CONCERNS ABOUT YOUR CONDITION; OR IF YOUR CONDITION WORSENS WHILE YOU ARE WAITING FOR YOUR FOLLOW UP APPOINTMENT; EITHER CONTACT YOUR PRIMARY CARE DOCTOR, THE PHYSICIAN WHOSE NAME AND NUMBER YOU WERE GIVEN, OR RETURN TO THE ED IMMEDIATELY. Attending Signature Attending Signature I have reviewed the PA/FLUX TUBE ATTENDANT's note and plan of care. I was available for consultation as needed during the patient's visit in the emergency department. I agree with the clinical impression, plan, and disposition. (MIKE REDDY DO) MIKE RODRÍGUEZ APRN Jul 28, 2021 12:43 MIKE REDDY DO Jul 29, 2021 15:39
[2021-07-28 12:46] VITALS: BP 121/76
== END 2021-07-28 12:51 | disposition home or self-care (01) ==
LOC: ER 09:42
DX: K52.9 Noninfective gastroenteritis and colitis, unspecified (principal)
CPT/HCPCS: 36415; 80053; 81001; 81025; 83690; 85025; 96361; 96374; 96375; 99285; J0780; J1885; J2405; J7030